=== PATIENT | male | born 1935 | race Caucasian/White ===

== ENCOUNTER 2023-10-11 20:53 | Inpatient (IN) ==
[2023-10-11 21:23] LABS: BASOPHILS % (AUTO) 0.3 % (0.0-3.0); EOSINOPHILS # (AUTO) 0.1 K/ul (0.0-0.7); EOSINOPHILS % (AUTO) 1.3 % (0.0-7.0); HEMATOCRIT 32.1 % (42.0-52.0); HEMOGLOBIN 11.2 g/dl (14.0-18.0); IMMATURE GRANULOCYTE # (AUTO) 0.1 (0.0-1.0); LYMPHOCYTES % (AUTO) 33.5 (10.0-50.0); MEAN CORPUSCULAR HEMOGLOBIN 33.4 pg (27.0-31.0); MEAN CORPUSCULAR HGB CONC 34.9 (31.8-35.4); MEAN CORPUSCULAR VOLUME 95.8 fl (80.0-94.0); MONOCYTES # (AUTO) 0.9 K/uL (0.4-2.0); MONOCYTES % (AUTO) 14.6 (0-10); NEUTROPHILS % (AUTO) 49.3 % (42.2-75.2); PLATELET COUNT 193 10^3/uL (140-440); RDW COEFFICIENT OF VARIATION 13.2 % (11.6-14.8); RED BLOOD COUNT 3.35 10^6/ul (4.70-6.10); WHITE BLOOD COUNT 6.03 K/ul (4.2-10.2)
--- NOTE | 2023-10-11 21:33 | DI ---
EXAM: SINGLE, PORTABLE AP VIEW(S) CHEST. HISTORY: Weakness. COMPARISON: 06/12/2022 TECHNIQUE: Single, portable AP view(s) of the chest. FINDINGS: Lungs: The lung voulmes are normal. The lungs are clear without consolidation or effusion. There are no suspicious nodules. There is no pneumothorax. Cardiovascular: The heart size and pulmonary vasculature is normal.. The aorta is tortuous. Jenniffer/Mediastinum: Normal. Osseous structures. Normal for age. IMPRESSION: No acute pulmonary disease.
[2023-10-11 21:47] LABS: ALANINE AMINOTRANSFERASE 21.2 U/L (0-50); ALKALINE PHOSPHATASE 67.6 U/L (56-119); ASPARTATE AMINO TRANSFERASE 36.1 U/L (17-59); BILIRUBIN,TOTAL 0.8 mg/dL (0.2-1.3); CALCIUM 8.9 mg/dL (8.4-10.2); CARBON DIOXIDE 22.4 mmol/L (22-30.0); CHLORIDE 96.6 mmol/L (98-107); CREATININE 1.11 mg/dL (0.60-1.10); GLUCOSE 94.6 mg/dL (74-106); SODIUM 125.3 mmol/L (134.5-145); TOTAL PROTEIN 7.17 g/dL (6.3-8.2)
[2023-10-11 21:56] LABS: BLOOD UREA NITROGEN 67.8 mg/dL (9-20)
[2023-10-11 22:15] LABS: BILIRUBIN,URINE Negative (NEGATIVE); CLARITY,URINE Clear (CLEAR); COLOR,URINE Yellow (YELLOW); GLUCOSE, URINE (UA) Negative (NEGATIVE); KETONES,URINE Negative (NEGATIVE); LEUKOCYTE ESTERASE ,URINE Negative (NEGATIVE); NITRITE,URINE Negative (NEGATIVE); PH,URINE 5.5 (5-9); PROTEIN,URINE Negative (NEGATIVE); URINE, BLOOD Trace-intact (NEGATIVE); UROBILINOGEN,URINE 0.2 (0.2)
[2023-10-11 22:19] LABS: POTASSIUM 3.2 mmol/L (3.5-5.1)
[2023-10-11 22:21] LABS: SQUAMOUS EPITHELIAL CELL,UR 0-2 (0-5)
[2023-10-11] MEDS: SODIUM CHLORIDE 1,000 ML IV ONE (22:42)
[2023-10-11] MEDS: POTASSIUM CHL 10% ORAL SOL PO STA (22:43)
[2023-10-11] MEDS: LASIX IVP STA (22:43)
--- NOTE | 2023-10-11 23:10 | ED.PDOC ---
General ED Provider: Dr. MAO LA DO Chief Complaint: Urinary Problem Stated Complaint: 88-year-old male presents to the ER concerned about intermittent urinary problems. He describes him as he was having to urinate every 30 minutes and then he went for a extent amount of time that he does not recall that he did not seem to urinate. But then he was able to urinate again and put on a diaper which she said he filled up but then had another episode where he felt as though he was not. Somewhat tangential, this seems to be his primary concern. He denies any fever, cough, chest pain, shortness of breath, abdominal pain, diarrhea, constipation. Denies blood thinner use. He does report that he takes blood pressure medication. He reports general compliance with it although sometimes he does miss a dose. Again he denies headache, chest pain, shortness of breath although his blood pressure is elevated upon arrival to the emergency department initially. Time Seen by Provider: 10/11/23 20:55 Information Source: Patient Primary Care Provider: YADIRA MILLIGAN MD Nursing and Triage Documentation Reviewed and Agree: Yes What is Opioid Naive?: *Opioid Naive implies the patient is not already taking opioids or not chronically receiving opioids on a daily basis. *PRN dosing is not "usually" associated with tolerance. *Patients are at higher risk of over-sedation and aspiration. What is Opioid Tolerant?: *Opioid Tolerance implies less than the expected response to an opioid. *Acquired tolerance is defined by the patient taking 60mg of oral morphine daily (or equianalgesic dose of another opioid) for 1 week or more. *Often associated with chronic pain. *May take more than usual dose to achieve desired pain control. Review of Systems Review Of Systems Constitutional: Reports No symptoms All Other Systems: Reviewed and Negative [facility] Medical History Cataracts, bilateral H26.9 - Unspecified cataract (ICD-10) History of fall Z91.81 - History of falling (ICD-10) Presence of stent in coronary artery in patient with coronary artery disease I25.10 - Atherosclerotic heart disease of [place] coronary artery without angina pectoris (ICD-10) Z95.5 - Presence of coronary angioplasty implant and graft (ICD-10) Family History Mother Dementia FATHER Acute [place] Social History Smoking and tobacco status: Former smoker Tobacco: How many years used: 40 How long ago did patient quit smoking: quit 35 years ago Alcohol intake: never Substance use type: does not use Special quan needs: No Agree to transfusion: Yes Adopted: No Caregiver/support person: No Foster care: No Household members: none Housing: house Marital status: W / Lives independently: Yes Number of children: 3 service: No [facility]: No Current occupational status: retired Pets and animals: Yes History of recent travel: No Do you think of yourself as: straight/heterosexual Current gender identity: male Seatbelt use: always Drives intoxicated or rides with intoxicated pedicab driver: No Water heater temperature set < 120 degrees: Yes Working smoke detector in home: Yes Fire extinguisher in home: Yes Carbon monoxide detector in home: No Surgical History Bilateral inguinal hernia K40.20 - Bilateral inguinal hernia, without obstruction or gangrene, not specified as recurrent (ICD-10) History of cystoscopy Z98.890 - Other specified postprocedural states (ICD-10) History of left heart catheterization Z98.890 - Other specified postprocedural states (ICD-10) S/p total knee replacement, 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 Discussed 300 340 cc. Patient able to urinate independently) Musculoskeletal: Reports Normal strength and ROM intact; Denies No edema (Bilateral lower extremity edema) Skin: Reports Warm, Dry and Normal color Neurological: Reports Sensation intact and Motor intact Psychiatric: Reports Affect appropriate and Mood appropriate Interpretation EKG Interpretation EKG Interpretation By: ED Physician Time of EKG #1: 21:21 Rate: Normal Rhythm: Other (Right bundle branch block. Appears sinus otherwise) Ectopy: None [place]: Left ST Segment: Normal Interpretation: No acute ischemia readily identified Critical Care Note Critical Care Note Total Critical Care Time (mins): 120 Comments: Critical care due to hyponatremia. Requiring cardiac monitoring and review. Cardiac output measures. Gentle fluid resuscitation. Hypokalemia, requiring repletion and observation. Renal dysfunction suspect prerenal failure. Gentle resuscitation in this elderly patient that overcorrection of any of these findings could be deadly if done incorrectly Course Course 10/11/23 21:20 10/11/23 23:45 Orders, Labs, Meds: Lab Review 10/11/23 10/11/23 10/11/23 21:20 22:00 23:45 WBC 6.03 RBC 3.35 L Hgb 11.2 L Hct 32.1 L MCV 95.8 H MCH 33.4 H MCHC 34.9 RDW Coeff of [place] 13.2 Plt Count 193 Immature Gran % (Auto) 1.0 Neut % (Auto) 49.3 Lymph % (Auto) 33.5 [place] % (Auto) 14.6 H Eos % (Auto) 1.3 Baso % (Auto) 0.3 Neut # (Auto) 3.0 Lymph # (Auto) 2.0 [place] # (Auto) 0.9 Eos # (Auto) 0.1 Baso # (Auto) 0.0 Immature Gran # (Auto) 0.1 PT 11.0 INR 1.06 Sodium 125.3 L 127.1 L Potassium 3.20 L 3.70 Chloride 96.6 L 99.6 Carbon Dioxide 22.4 21.5 L Anion Gap 9.50 9.70 BUN 67.8 H* 62.5 H* Creatinine 1.11 H 1.08 Estimated GFR (MDRD) 62.00 64.00 BUN/Creatinine Ratio 61.08 57.87 Glucose 94.6 129.4 H Calcium 8.90 8.64 Total Bilirubin 0.80 AST 36.1 ALT 21.2 Alkaline Phosphatase 67.6 NT-Pro-B Natriuret Pep 878 H Total Protein 7.17 Albumin 4.00 Globulin 3.17 Albumin/Globulin Ratio 1.26 Urine Color Yellow Urine Clarity Clear Urine pH 5.5 Ur Specific [place] 1.010 Urine Protein Negative Urine Glucose (UA) Negative Urine Ketones Negative Urine Blood Trace-intact H Urine Nitrite Negative Urine Bilirubin Negative Urine Urobilinogen 0.2 Ur Leukocyte Esterase Negative Urine Microscopic RBC 2-5 Ur Squamous Epith Cells 0-2 Orders Category Date Time Status ADMIT OBSERVATION [PLACE PATIENT OBSERVATION] .TO ADMISSION 10/12/23 00:27 Ordered MEDSURG (NON-MONITORED BED) EKG-(ED ONLY) Stat CARDIO 10/11/23 21:10 Completed BLADDER SCAN ONCE CARE 10/11/23 21:02 Active URINALYSIS COLLECTION (NURSING) ONCE CARE 10/12/23 00:29 Ordered BMP [BASIC METABOLIC PANEL] Stat LAB 10/11/23 23:45 Completed BMP [BASIC METABOLIC PANEL] Timed LAB 10/12/23 06:00 Ordered CBC W/ AUTO DIFF Stat LAB 10/11/23 21:20 Completed CBC W/ AUTO DIFF Timed LAB 10/12/23 06:00 Ordered CMP [COMPREHENSIVE METABOLIC PANEL] Stat LAB 10/11/23 21:20 Completed ED PROBNP [NT-PROBNP(ED)] Stat LAB 10/11/23 21:20 Completed NT-PROBNP(ED) DAILY LAB 10/12/23 06:00 Ordered PT WITH INR Stat LAB 10/11/23 21:20 Completed URINALYSIS C & S IF INDICATED Stat LAB 10/11/23 22:00 Completed URINALYSIS C & S IF INDICATED Timed LAB 10/12/23 06:00 Uncollected Furosemide [Lasix] Meds 10/11/23 22:31 Discontinued 40 mg IVP ONCE STA Potassium Chloride [Potassium Chl 10% Oral Peggy] Meds 10/11/23 22:31 Discontinued 40 meq PO ONCE STA Sodium Chloride 0.9% [Sodium Chloride] 1,000 ml Meds 10/11/23 22:31 Discontinued IV BOLUS CHEST, 1V AP ONLY Stat RADS 10/11/23 21:10 Completed CHEST, 1V AP ONLY Timed RADS 10/12/23 06:00 Ordered Medications Discontinued Medications Generic Name Dose Route Start Last Admin Trade Name Freq PRN Reason Stop Dose Admin Furosemide 40 mg 10/11/23 22:31 10/11/23 22:43 Furosemide Inj 40 Mg/4 Ml Vial IVP 10/11/23 22:32 40 mg ONCE STA Administration Sodium Chloride 1,000 mls @ 1,000 mls/hr 10/11/23 22:31 10/11/23 22:42 Sodium Chloride IV 10/11/23 23:30 1,000 mls/hr BOLUS ONE Administration Potassium Chloride 40 meq 10/11/23 22:31 10/11/23 22:43 Potassium Chloride 40 Meq/30 Ml Cup PO 10/11/23 22:32 40 meq ONCE STA Administration Vital Signs: Temp Pulse Resp BP Pulse Ox 10/11/23 20:58 99.1 F 76 18 188/124 H 99 Discharge Plan Discharge Patient Disposition: PLACED OBSERVATION Discharge Problem: Elevated BUN, Acute hyponatremia, Acute hypokalemia Chronic kidney disease Qualifiers: Chronic kidney disease stage: stage 3 (moderate) Chronic kidney disease stage 3 subtype: unspecified whether 3a or 3b Qualified Code(s): N18.30 - Chronic kidney disease, stage 3 unspecified Prescriptions: No Action enalapril maleate 20 mg tablet 20 mg PO QDAY Qty: 90 1RF omeprazole 20 mg capsule,delayed release(DR/EC) 20 mg PO DAILY Qty: 90 1RF atorvastatin [Lipitor] 80 mg tablet 80 mg PO QDAY Qty: 90 1RF tamsulosin 0.4 mg capsule 0.4 mg PO BID Qty: 180 1RF triamterene-hydrochlorothiazid 37.5-25 mg capsule 1 cap PO .3x week PRN (Reason: swelling) Qty: 30 2RF lidocaine HCl 10 mg/mL (1 %) solution 2.1 ml IM ONCE Qty: 2.1 0RF Did you review [place] [employer] for ALL controlled substances?: Not Applicable ED Provider: MAO LA Condition: Stable Physician Progress Note: 88-year-old male with multiple comorbidities presents with a concern about remittent difficulty urinating. He does have lower extremity edema. Concern for CHF versus renal failure. He is afebrile nontoxic doubt infectious etiology to include sepsis. He denies headache, chest pain, shortness of breath. Although he is hypertensive, this could be asymptomatic hypertension. Otherwise have low suspicion for acute cardiopulmonary processes to include not limited to ACS, [place], PE, pneumothorax, dissection or tamponade. Will evaluate BNP in addition to basic laboratory workup to assess his electrolyte status as well as renal function and BNP. Will be prepared to diurese if needed. Will exercise caution initially with IV fluids given the lower extremity edema although he does not have any crackles on physical exam of his lungs. Will continue to reassess for management disposition planning [] 0031: This patient has done overall well in the emergency department. He has handled fluids well and does not show signs of fluid overload at this time. His sodium is come up slightly and his BUN has improved slightly, his potassium has improved with oral supplementation, that said, I feel this patient requires a gentle resuscitation and electrolyte balance correction. I discussed the case with the hospitalist service who is graciously except for admission/observation.
[2023-10-12 00:12] LABS: CALCIUM 8.64 mg/dL (8.4-10.2); CARBON DIOXIDE 21.5 mmol/L (22-30.0); CHLORIDE 99.6 mmol/L (98-107); CREATININE 1.08 mg/dL (0.60-1.10); GLUCOSE 129.4 mg/dL (74-106); SODIUM 127.1 mmol/L (134.5-145)
[2023-10-12 00:20] LABS: BLOOD UREA NITROGEN 62.5 mg/dL (9-20)
[2023-10-12 00:23] LABS: POTASSIUM 3.7 mmol/L (3.5-5.1)
[2023-10-12 02:10] LABS: SARS COV-2 RNA RAPID NAAT NEGATIVE (NEGATIVE)
[2023-10-12] MEDS: SODIUM CHLORIDE 500 ML IV ONE (03:25)
[2023-10-12 03:42] VITALS: BMI 21.9
[2023-10-12 06:16] LABS: BASOPHILS % (AUTO) 0.3 % (0.0-3.0); EOSINOPHILS # (AUTO) 0.1 K/ul (0.0-0.7); EOSINOPHILS % (AUTO) 1.3 % (0.0-7.0); HEMATOCRIT 33.5 % (42.0-52.0); HEMOGLOBIN 11.7 g/dl (14.0-18.0); IMMATURE GRANULOCYTE % (AUTO) 0.7 % (0.0-5.0); LYMPHOCYTES # (AUTO) 1.6 K/uL (0.60-3.4); LYMPHOCYTES % (AUTO) 26.3 (10.0-50.0); MEAN CORPUSCULAR HEMOGLOBIN 33.2 pg (27.0-31.0); MEAN CORPUSCULAR HGB CONC 34.9 (31.8-35.4); MEAN CORPUSCULAR VOLUME 95.2 fl (80.0-94.0); MONOCYTES # (AUTO) 0.9 K/uL (0.4-2.0); MONOCYTES % (AUTO) 14.1 (0-10); NEUTROPHILS # (AUTO) 3.5 K/ul (2.0-6.9); NEUTROPHILS % (AUTO) 57.3 % (42.2-75.2); PLATELET COUNT 203 10^3/uL (140-440); RDW COEFFICIENT OF VARIATION 13.2 % (11.6-14.8); RED BLOOD COUNT 3.52 10^6/ul (4.70-6.10); WHITE BLOOD COUNT 6.09 K/ul (4.2-10.2)
[2023-10-12] MEDS ORDERED: TYLENOL PO PRN (06:17)
[2023-10-12] MEDS ORDERED: ZOFRAN 4 MG/2 ML IVP PRN (06:17)
[2023-10-12 06:30] LABS: CALCIUM 8.77 mg/dL (8.4-10.2); CARBON DIOXIDE 25.6 mmol/L (22-30.0); CREATININE 1.07 mg/dL (0.60-1.10); GLUCOSE 93.9 mg/dL (74-106); SODIUM 129.2 mmol/L (134.5-145)
[2023-10-12 06:47] LABS: POTASSIUM 3.3 mmol/L (3.5-5.1)
[2023-10-12 06:48] LABS: BLOOD UREA NITROGEN 62.6 mg/dL (9-20)
[2023-10-12 06:49] LABS: CHLORIDE 98.7 mmol/L (98-107)
[2023-10-12 07:15] LABS: BILIRUBIN,URINE Negative (NEGATIVE); CLARITY,URINE Clear (CLEAR); COLOR,URINE Yellow (YELLOW); GLUCOSE, URINE (UA) Negative (NEGATIVE); KETONES,URINE Negative (NEGATIVE); LEUKOCYTE ESTERASE ,URINE Negative (NEGATIVE); NITRITE,URINE Negative (NEGATIVE); PH,URINE 5.5 (5-9); PROTEIN,URINE Negative (NEGATIVE); URINE, BLOOD Negative (NEGATIVE); UROBILINOGEN,URINE 0.2 (0.2)
--- NOTE | 2023-10-12 09:43 | PCM ---
Date of Service Date Seen by Provider: 10/12/23 Time Seen by Provider: 08:30 Admit Day/Time Admission Date: 10/12/23 Reason for Admission Chief Complaint: HYPONITREMIA,DEHYDRATION,ELEVATED BLIN Hospital Provider Hospital Provider: SAMI WINTER, [facility] [place] Phys[place] Primary Care Physician: YADIRA COBIAN MD History of Present Illness History of Present Illness: 88 yo male presented to the ER with complaints of trouble urinating. Patient states he would feel the urge to pee but was not able to produce any. Bladder scan completed and small amount of urine was noted. Sodium was found to be 125.3. BUN 67.8. Creatinine 1.11. Normal sodium for patient appears to be around 134 and BUN typically in the 30s with creatinine in normal range. Patient states he has been experiencing significant weakness at home and difficulties with his balance. Has +3-4 pitting edema bilaterally affecting this. Denies fever, chills, urinary symptoms, chest pain, N/V/D. Case Discussed With Case Discussed With: Patient's case was discussed with the ER Physicians, Dr. Concepcion. 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 Z96.653 - Presence of artificial knee joint, bilateral (ICD-10) Bilateral inguinal hernia left caesar 2014 K40.20 - Bilateral inguinal hernia, without obstruction or gangrene, not specified as recurrent (ICD-10) History of left heart catheterization one blocked with collateral Z98.890 - Other specified postprocedural states (ICD-10) Family History Mother Dementia FATHER Acute [place] Social History Smoking and tobacco status: Former smoker Tobacco: How many years used: 40 How long ago did patient quit smoking: quit 35 years ago Alcohol intake: never Substance use type: does not use Special quan needs: No Agree to transfusion: Yes Adopted: No Caregiver/support person: No Foster care: No Household members: none Housing: house Marital status: W / Lives independently: Yes Number of children: 3 Highest education level completed: some college, no degree Financial difficulty paying for basics: not very hard service: No MCC: No Current occupational status: retired Pets and animals: Yes History of recent travel: No Do you think of yourself as: straight/heterosexual Current gender identity: male Seatbelt use: always Drives intoxicated or rides with intoxicated 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 Current diet type/program: regular Water heater temperature set < 120 degrees: Yes Working smoke detector in home: Yes Fire extinguisher in home: Yes Carbon monoxide detector in home: No Allergies Allergies Allergy/AdvReac Type Severity Reaction Status Date / Time ferrous sulfate AdvReac Unknown Verified 10/11/23 21:10 Current Medications Home Medications lidocaine HCl 10 mg/mL (1 %) injection solution 2.1 ml IM ONCE #2.1 mL 11/09/22 [Clinic Confirmed 10/11/23 Last Taken Unknown] atorvastatin 80 mg tablet (Lipitor) 80 mg PO QDAY #90 tabs 02/08/23 [Rx Confirmed 10/11/23 Last Taken Unknown] enalapril maleate 20 mg tablet 20 mg PO QDAY #90 tabs 04/13/23 [Rx Confirmed 10/11/23 Last Taken Unknown] omeprazole 20 mg capsule,delayed release 20 mg PO DAILY #90 caps 04/13/23 [Rx Confirmed 10/11/23 Last Taken Unknown] tamsulosin 0.4 mg capsule 0.4 mg PO BID #180 caps 05/12/23 [Rx Confirmed 10/11/23 Last Taken Unknown] triamterene 37.5 mg-hydrochlorothiazide 25 mg capsule 1 cap PO .3x week PRN swelling #30 caps 08/12/23 [Rx Confirmed 10/11/23 Last Taken Unknown] Home Acetaminophen (Acetaminophen 325 Mg Tablet) 650 mg PO Q4H PRN PRN Reason: Mild Pain Atorvastatin Calcium (Atorvastatin Calcium 20 Mg Tablet) 80 mg PO DAILY [facility] Enalapril Maleate (Enalapril Maleate 20 Mg Tablet) 20 mg PO DAILY [facility] Sodium Chloride (Sodium Chloride) 1,000 mls @ 75 mls/hr IV .[id number] NARENDRA Omeprazole (Omeprazole 20 Mg Capsule.Dr) 20 mg PO DAILY [facility] Ondansetron HCl (Ondansetron Hcl/Pf 4 Mg/2 Ml Sdv) 4 mg IVP Q6H PRN PRN Reason: Nausea / Vomiting Tamsulosin HCl (Tamsulosin Hcl 0.4 Mg Cap.Er.24h) 0.4 mg PO BID NARENDRA Discontinued Medications Furosemide (Furosemide Inj 40 Mg/4 Ml Vial) 40 mg IVP ONCE STA Stop: 10/11/23 22:32 Last Admin: 10/11/23 22:43 Dose: 40 mg Sodium Chloride (Sodium Chloride) 1,000 mls @ 1,000 mls/hr IV BOLUS ONE Stop: 10/11/23 23:30 Last Infusion: 10/12/23 02:32 Dose: Infused Sodium Chloride (Sodium Chloride) 500 mls @ 100 mls/hr IV .Q5H ONE Stop: 10/12/23 06:14 Last Admin: 10/12/23 03:25 Dose: 100 mls/hr Potassium Chloride (Potassium Chloride 40 Meq/30 Ml Cup) 40 meq PO ONCE STA Stop: 10/11/23 22:32 Last Admin: 10/11/23 22:43 Dose: 40 meq Potassium Chloride (Potassium Chloride 20 Meq Tab) 40 meq PO ONCE ONE Stop: 10/12/23 08:17 Opioid Naive vs. Tolerant Does Patient Take Opioids?: No Is Patient Opioid Naive?: Yes What is Opioid Naive?: *Opioid Naive implies the patient is not already taking opioids or not chronically receiving opioids on a daily basis. *PRN dosing is not "usually" associated with tolerance. *Patients are at higher risk of over-sedation and aspiration. Is Patient Opioid Tolerant?: No What is Opioid Tolerant?: *Opioid Tolerance implies less than the expected response to an opioid. *Acquired tolerance is defined by the patient taking 60mg of oral morphine daily (or equianalgesic dose of another opioid) for 1 week or more. *Often associated with chronic pain. *May take more than usual dose to achieve desired pain control. Review of Systems Constitutional: Reports Weakness Head: Reports Normocephalic Eyes: Reports No symptoms Ears: Reports No symptoms Nose: Reports No symptoms Mouth: Reports No symptoms Throat: Reports No symptoms Cardiovascular: Reports No symptoms Respiratory: Reports No symptoms Gastrointestinal: Reports No symptoms Genitourinary: Reports Other (anuria) Hematology: Reports No symptoms Immunology: Reports No symptoms Neurological: Reports No symptoms Psychiatric: Reports No symptoms Physical examination Most Recent Vital Signs: Most Recent Vital Signs Temperature 97.9 F 10/12/23 05:11 Temperature Source Temporal Artery Scan 10/12/23 05:11 Temperature Source Infrared 10/11/23 20:58 Pulse Rate 72 10/12/23 08:00 Respiratory Rate 20 10/12/23 08:00 Blood Pressure 166/80 H 10/12/23 05:11 Blood Pressure Mean 108 10/12/23 05:11 Blood Pressure Left Arm 170/83 10/12/23 03:02 Blood Pressure Location Left Arm 10/12/23 05:11 Blood Pressure Position Supine 10/12/23 03:02 O2 Sat by Pulse Oximetry 96 10/12/23 05:11 Oxygen Delivery Method Room Air 10/12/23 09:00 Height 5 ft 7 in 10/12/23 09:32 Weight 140 lb 8 oz 10/12/23 09:32 Appearance: Positive No Apparent Distress and Alert and Oriented x3 Skin: Positive [place] and Warm HEENT: Positive Normocephalic and PERRLA Neck: Positive Supple and Midline Trachea Chest/Lungs: Positive Symmetrical With Equal Breath Sounds, Clear to Auscultation Bilaterally and Good Air Movement all 4 Lung Sin Heart: Positive RRR and Pulses Normal GI/: Positive Soft, Nontender, Bowel Sounds Normal and No Distention Musculoskeletal: Positive Not Examined Extremities: Positive Edema (+3-4 pitting ble), Intact Peripheral Pulses, Stable Joints Without Laxity and Good ROM in All Joints Neurological: Positive Sensation Intact, Motor intact, Reflexes Intact, Alert, Oriented and Other (generalized weakness) Labs This Visit Labs This Visit: Labs This Visit 10/11/23 10/11/23 10/11/23 21:20 22:00 23:45 WBC 6.03 RBC 3.35 L Hgb 11.2 L Hct 32.1 L MCV 95.8 H MCH 33.4 H MCHC 34.9 RDW Coeff of [place] 13.2 Plt Count 193 Immature Gran % (Auto) 1.0 Neut % (Auto) 49.3 Lymph % (Auto) 33.5 [place] % (Auto) 14.6 H Eos % (Auto) 1.3 Baso % (Auto) 0.3 Neut # (Auto) 3.0 Lymph # (Auto) 2.0 [place] # (Auto) 0.9 Eos # (Auto) 0.1 Baso # (Auto) 0.0 Immature Gran # (Auto) 0.1 PT 11.0 INR 1.06 Sodium 125.3 L 127.1 L Potassium 3.20 L 3.70 Chloride 96.6 L 99.6 Carbon Dioxide 22.4 21.5 L Anion Gap 9.50 9.70 BUN 67.8 H* 62.5 H* Creatinine 1.11 H 1.08 Estimated GFR (MDRD) 62.00 64.00 BUN/Creatinine Ratio 61.08 57.87 Glucose 94.6 129.4 H Calcium 8.90 8.64 Total Bilirubin 0.80 AST 36.1 ALT 21.2 Alkaline Phosphatase 67.6 NT-Pro-B Natriuret Pep 878 H Total Protein 7.17 Albumin 4.00 Globulin 3.17 Albumin/Globulin Ratio 1.26 Urine Color Yellow Urine Clarity Clear Urine pH 5.5 Ur Specific [place] 1.010 Urine Protein Negative Urine Glucose (UA) Negative Urine Ketones Negative Urine Blood Trace-intact H Urine Nitrite Negative Urine Bilirubin Negative Urine Urobilinogen 0.2 Ur Leukocyte Esterase Negative Urine Microscopic RBC 2-5 Ur Squamous Epith Cells 0-2 SARS CoV-2 RNA Rapid IVANNA 10/12/23 10/12/23 10/12/23 01:29 06:12 07:05 WBC 6.09 RBC 3.52 L Hgb 11.7 L Hct 33.5 L MCV 95.2 H MCH 33.2 H MCHC 34.9 RDW Coeff of [place] 13.2 Plt Count 203 Immature Gran % (Auto) 0.7 Neut % (Auto) 57.3 Lymph % (Auto) 26.3 [place] % (Auto) 14.1 H Eos % (Auto) 1.3 Baso % (Auto) 0.3 Neut # (Auto) 3.5 Lymph # (Auto) 1.6 [place] # (Auto) 0.9 Eos # (Auto) 0.1 Baso # (Auto) 0.0 Immature Gran # (Auto) 0.0 PT INR Sodium 129.2 L Potassium 3.30 L Chloride 98.7 Carbon Dioxide 25.6 Anion Gap 8.20 BUN 62.6 H* Creatinine 1.07 Estimated GFR (MDRD) 65.00 BUN/Creatinine Ratio 58.50 Glucose 93.9 Calcium 8.77 Total Bilirubin AST ALT Alkaline Phosphatase NT-Pro-B Natriuret Pep 2190 H Total Protein Albumin Globulin Albumin/Globulin Ratio Urine Color Yellow Urine Clarity Clear Urine pH 5.5 Ur Specific [place] 1.010 Urine Protein Negative Urine Glucose (UA) Negative Urine Ketones Negative Urine Blood Negative Urine Nitrite Negative Urine Bilirubin Negative Urine Urobilinogen 0.2 Ur Leukocyte Esterase Negative Urine Microscopic RBC Ur Squamous Epith Cells SARS CoV-2 RNA Rapid IVANNA Negative Imaging Imaging: EXAM: SINGLE, PORTABLE AP VIEW(S) CHEST. HISTORY: Weakness. COMPARISON: 06/12/2022 TECHNIQUE: Single, portable AP view(s) of the chest. FINDINGS: Lungs: The lung voulmes are normal. The lungs are clear without consolidation or effusion. There are no suspicious nodules. There is no pneumothorax. Cardiovascular: The heart size and pulmonary vasculature is normal.. The aorta is tortuous. Jenniffer/Mediastinum: Normal. Osseous structures. Normal for age. IMPRESSION: No acute pulmonary disease. Review Statement Review Statement: I have independently reviewed and interpreted the labs/EKGs/imaging that were ordered by the ER provider. I have reviewed all outside records that are available currently in our EMR including imaging/notes/labs from previous visits. Plan Plan: 1. Severe Hyponatremia - Na 125, baseline 134, NS@75mL/hr - gentle due to CHF history and significant edema, unable to complete osmolalities due to treatment with IV fluids in ER, telemetry 2. Dehydration - BUN in 60s, baseline 30s, gentle hydration - NS@75mL/hr, avoid nephrotoxins/hypotension 3. Hypokalemia - replace and monitor 4. Hypertension - chronic, continue home medications 5. Weakness - PT/OT eval and treat DVT Prophylaxis: ambulation Time Spent: Greater than 80 minutes spent with patient, 50% of the time spent with this patient was devoted to counseling and coordination of care. [facility] minutes spent discussing advance care planning. Disposition: Admit to: Med/Surg Inpatient DNR Discussed Plan of Care with Dr. Michael Cobian. Medications Medication Orders: Medications Ordered Category Date Time Status Acetaminophen [Tylenol] Meds 10/12/23 06:17 Active 650 mg PO Q4H PRN Atorvastatin Calcium [Lipitor] Meds 10/12/23 06:30 Active 80 mg PO DAILY Enalapril Maleate [Vasotec] Meds 10/12/23 06:30 Active 20 mg PO DAILY Omeprazole [Prilosec] Meds 10/12/23 09:00 Active 20 mg PO DAILY Ondansetron HCl/Pf [Zofran 4 mg/2 ml] Meds 10/12/23 06:17 Active 4 mg IVP Q6H PRN Tamsulosin HCl [Flomax] Meds 10/12/23 09:00 Active 0.4 mg PO BID
[2023-10-12] MEDS: LIPITOR PO SCH (10:01)
[2023-10-12] MEDS: PRILOSEC PO SCH (10:01)
[2023-10-12] MEDS: FLOMAX PO SCH (10:01)
[2023-10-12] MEDS: VASOTEC PO SCH (10:01)
[2023-10-12] MEDS: MIRALAX PO PRN (10:23)
[2023-10-12] MEDS: MIRALAX ONE (10:24)
[2023-10-12] MEDS: K-DUR PO ONE (10:24)
[2023-10-12] MEDS: SODIUM CHLORIDE 1,000 ML IV SCH (11:27)
--- NOTE | 2023-10-12 12:04 | RS.PTINEVL ---
Subjective Patient information Date of Evaluation: 10/12/23 Date of Arrival on Unit: 10/12/23 Admitted From:: Home Diagnosis: hyponatremia, dehydration Usual Living Arrangement: With Others Living Arrangement Comments: Son lives with patient, daughter lives next door Home Environment: House, Stairs (few) and Rail Medical History: Hypertension and Arthritis Medical History Comments:: CAD, h/o falls LATEX ALLERGY?: No Surgical History: Knee Replacement (bilateral) Surgical History Comments:: B inguinal hernia repair, Coronary stent Medications: see chart Subjective Information/ Patient Comments:: pt states that he would like to try to walk. pt states "I am wet." Assisted pt with hygeine. Level of function Prior to this admission, the patient could do the following:: Independent Selfcare, Independent ADL's, Independent Ambulation, Perform Hook Tender/Cooking and Participated in Social Activities Outside home Current Level of Function: Partially Dependent Current Equipment Used at Home: rolling walker Interventions Objective Patient Orientation: Person, Place and Situation Current Interventions: IV's and Telemetry Observation: pt with significant thoracic kyphosis, rounded shoulders, forward head. Range of Motion ROM Right Upper Extremity AROM: WFL's Left Upper Extremity AROM: WFL's Right Lower Extremity AROM: WFL's Left Lower Extremity AROM: WFL's Muscle Strength Muscle Strength Right Upper Extremity: Mild Weakness (grossly 4-/5) Left Upper Extremity: Mild Weakness (grossly 4-/5) Right Lower Extremity: Mild Weakness (hip flex 4-/5, knee flex/ext 4/5, ankle DF/PF 4/5) Left Lower Extremity: Mild Weakness (hip flex 4-/5, knee flex/ext 4/5, ankle DF/PF 4/5) Sensation Sensation Right Upper Extremity: Intact/Normal Left Upper Extremity: Intact/Normal Right Lower Extremity: Intact/Normal Left Lower Extremity: Intact/Normal Palpation Palpation Findings: None/Normal Balance Sitting Balance and Reactions Static Sitting Balance: Fair Dynamic Sitting Balance: Fair (fair-) Standing Balance and Reactions Static Standing Balance: Poor Dynamic Standing Balance: Poor Standing Equilibrium Reactions: Delayed Left and Delayed Right Standing Protective Reactions: Delayed Left and Delayed Right Functional Mobility Bed Mobility Comments:: pt seen sitting up in bedside chair. Transfers Sit to Stand: Min Assist Stand to Sit: Min Assist Safety Awareness Safety Awareness: Poor MIRNA INDEX SCORE: n/a Ambulation Ambulation Assistive Device Used: Rolling Walker Orthotic/Prosthetic Device: No Distance: 110ft Assistance needed with Ambulation: Min Assist and 1 person assist Gait Deviations: Forward posture, Short stride and Deviates from path Factors Affecting Ambulation: Decreased Balance, Weakness, Decreased Coordination, Decreased Safety and Limited Endurance Treatment time Units charged Gait trainin Time with patient Length of Evaluation: 19 Total treatment time: 32 Patient Education Education Patient Education: Activity Modification and Education of Plan of Care Teaching Recipient: Patient Teaching Methods: Discussion Comments: discussion regarding POC Assessment Assessment Problem List:: Decreased level of function, Requires training/education, Decreased safety/Risk of falls and Weakness Rehab Potential: Good Further Therapy Indicated?: Yes Candidate for Swing Bed for Therapy Services?: pt may be a candidate for swing bed for therapy, will reassess closer to ca from acute care. Evaluation Complexity: HISTORY: Medium, EXAM OF BODY SYSTEMS: Medium, CLINICAL PRESENTATION: Medium and CLINICAL DECISION MAKING: Medium Patient's Goal(s): Get stronger and go back home. Short Term Goals GOAL #1: pt demonstrate rolling and scooting in bed independently. Goal to be met by: 10/15/23 GOAL #2: Transfer sup to/from sit min x 1 Goal to be met by: 10/15/23 GOAL #3: Transfer sit to/from stand CGA Goal to be met by: 10/15/23 GOAL #4: pt amb with rwx 140ft with CGA x 1 no LOB Goal to be met by: 10/15/23 GOAL #5: Improve BLE strength 4 to 4+/5 Goal to be met by: 10/15/23 Turf Farm Worker Goals GOAL #1: pt transfer sup to/from sit to/from stand SBA to indepednent. Goal to be met by: 10/18/23 GOAL #2: pt amb functional household distances with rwx SBA. Goal to be met by: 10/18/23 GOAL #3: pt ascend/descend 3 steps w handrail CGA x 1 Goal to be met by: 10/18/23 Plan Plan of Care: Therapeutic EX and Therapeutic Activity Other:: gait training Frequency of Treatment: 1-2 X day, as tolerated Duration of Treatment: 5-7 days Anticipated Discharge Destination: home vs swing bed Treatment Diagnosis (ICD 10 Codes): impaired balance R 26.81 difficulty walking R26.2 weakness M62.81 h/o falls R 29.6 Has the Physician been added for Co-signature?: Yes
--- NOTE | 2023-10-12 12:05 | RS.OTINEVL ---
Subjective Patient information Date of Evaluation: 10/12/23 Date of Arrival on Unit: 10/12/23 Admitted From:: Home Diagnosis: dehydrated, hyponitremia, weakness PRECAUTIONS: Fall risk Usual Living Arrangement: With Others Living Arrangement Comments: Son lives with patient in the patient's house. Home Environment: House and Stairs (many) (to get into home, one step down into living room.) Medical History: Hypertension and CHF Medical History Comments:: RI 2007, DDD LATEX ALLERGY?: No Surgical History: Knee Replacement (Left 2005, Right 04/26/14) Surgical History Comments:: hernia repair 2013, Right TKA 04/26/14 Medications: Refer to chart Subjective Information/ Patient Comments:: Pt reports he uses a RW at home. Level of function Prior to this admission, the patient could do the following:: Independent Selfcare, Independent ADL's, Independent Ambulation, Perform Geodetic Surveyor/Cooking, Drive and Participated in Social Activities Outside home Abilities prior to this admission: Pt is able to dress himself. Pt is able to pull briefs up. Pt wears brief. Pt does shop sometimes at the [employer] store. Current Level of Function: Partially Dependent Current Equipment Used at Home: Rolling Walker Pain Assessment Pain Pain Score: 0 Interventions Objective Patient Orientation: Person, Place and Situation Current Interventions: IV's Observation: Pt is thin and walks bent over. Pt is able to complete using a urinal. Pt was educated about calling for help to use the urinal in standing. Pt has 4-/5 MMT of BUE. Interventions ROM Right Upper Extremity AROM: WFL's Left Upper Extremity AROM: WFL's Strength Right Upper Extremity: Mild Weakness Left Upper Extremity: Mild Weakness Sensation Right Upper Extremity: Intact/Normal Left Upper Extremity: Intact/Normal Balance Sitting Balance Static Sitting Balance: Good Dynamic Sitting Balance: Good Standing Balance Static Standing Balance: Poor Dynamic Standing Balance: Poor ADL Skills Self Feeding Self Feeding: Independent Grooming Grooming: Min Assist Grooming Set-up: Sitting Bathing Bathing UE: CGA, Min Assist, 1 person assist and Verbal Cues Bathing LE: Min Assist, 1 person assist and Verbal Cues Bathing Set-up: Shower Dressing Dressing UE: Independent Dressing LE: Min Assist Toilet Management Toilet Hygiene: Set Up Only Toilet Clothing Management: Independent Functional Mobility Transfers Sit to Stand: Min Assist Stand to Sit: Min Assist Stand Pivot Transfers: Min Assist Ambulation Weight Bearing Status: WBAT Assistive Device Used: Rolling Walker Assistance needed with Ambulation: CGA Safety Awareness Safety Awareness: Good MIRNA INDEX SCORE: . Additional Treatment Performed Additional units charged ADL: 15 Time with patient Length of Evaluation: 17 Total treatment time: 32 Activities Do you enjoy playing games?: Yes Would you be interested in leaving your room for activities?: Yes Would you enjoy group activities?: Yes Do you have difficulty with your vision?: No Patient Interests:: Watching Television and Visiting/Socializing Patient Education Patient Education: Education of diagnosis, Home Safety and Education of Plan of Care Teaching Recipient: Patient Teaching Methods: Discussion and Demonstration Assessment Problem List:: Decreased level of function, Requires training/education, Decreased safety/Risk of falls and Weakness Rehab Potential: Good Further Therapy Indicated?: Yes Evaluation Complexity: HISTORY: Medium, EXAM OF BODY SYSTEMS: Medium and CLINICAL DECISION MAKING: Medium Patient's Goal(s): To get stronger and be able to take care of himself. Short Term Goals Goals GOAL 1: Pt will be (S) with dressing. Goal to be met by: 10/15/23 GOAL 2: Pt will be (S) with functional mobility. Goal to be met by: 10/15/23 GOAL 3: Pt will have good- ADL balance and strength. Goal to be met by: 10/15/23 GOAL 4: Pt to increase BUE strength to 4/5. Goal to be met by: 10/15/23 GOAL 5: Pt to be SUP with toilet transfer. Goal to be met by: 10/15/23 Fpc Goals GOAL 1: Pt will be (I) with dressing. Goal to be met by: 10/19/23 GOAL 2: Pt will be (I) with functional mobility. Goal to be met by: 10/19/23 GOAL 3: Pt will have good ADL balance and strength. Goal to be met by: 10/19/23 Plan Plan of Care: Therapeutic EX, Neuromuscular Re-Educ, Therapeutic Activity and Self-Care/Home Management Frequency of Treatment: 1-2 X day, as tolerated Duration of Treatment: 1 Week Anticipated Discharge Destination: Home Treatment Diagnosis (ICD 10 Codes): Weakness R53.1, Z74.1 Need for assistance with personal care. Has the Physician been added for Co-signature?: Yes
[2023-10-12] MEDS: MIRALAX PO ONE (21:38)
[2023-10-13] MEDS: ZYPREXA IM ONE (00:01)
[2023-10-13 05:39] LABS: BASOPHILS % (AUTO) 0.1 % (0.0-3.0); EOSINOPHILS # (AUTO) 0.1 K/ul (0.0-0.7); EOSINOPHILS % (AUTO) 1.1 % (0.0-7.0); HEMATOCRIT 35.3 % (42.0-52.0); HEMOGLOBIN 12.1 g/dl (14.0-18.0); IMMATURE GRANULOCYTE # (AUTO) 0.1 (0.0-1.0); IMMATURE GRANULOCYTE % (AUTO) 0.8 % (0.0-5.0); LYMPHOCYTES # (AUTO) 1.8 K/uL (0.60-3.4); MEAN CORPUSCULAR HEMOGLOBIN 32.8 pg (27.0-31.0); MEAN CORPUSCULAR HGB CONC 34.3 (31.8-35.4); MEAN CORPUSCULAR VOLUME 95.7 fl (80.0-94.0); MONOCYTES # (AUTO) 0.9 K/uL (0.4-2.0); MONOCYTES % (AUTO) 11.6 (0-10); NEUTROPHILS # (AUTO) 5.1 K/ul (2.0-6.9); NEUTROPHILS % (AUTO) 63.4 % (42.2-75.2); PLATELET COUNT 209 10^3/uL (140-440); RDW COEFFICIENT OF VARIATION 13.3 % (11.6-14.8); RED BLOOD COUNT 3.69 10^6/ul (4.70-6.10); WHITE BLOOD COUNT 7.96 K/ul (4.2-10.2)
[2023-10-13 05:55] LABS: ALANINE AMINOTRANSFERASE 21.6 U/L (0-50); ALBUMIN 3.82 g/dL (3.5-5.0); ALKALINE PHOSPHATASE 74.1 U/L (56-119); ASPARTATE AMINO TRANSFERASE 30.8 U/L (17-59); BILIRUBIN,TOTAL 1.04 mg/dL (0.2-1.3); BLOOD UREA NITROGEN 38.1 mg/dL (9-20); CALCIUM 8.87 mg/dL (8.4-10.2); CHLORIDE 102.8 mmol/L (98-107); CREATININE 1.04 mg/dL (0.60-1.10); GLUCOSE 99.5 mg/dL (74-106); POTASSIUM 3.92 mmol/L (3.5-5.1); SODIUM 130.6 mmol/L (134.5-145); TOTAL PROTEIN 7.19 g/dL (6.3-8.2)
--- NOTE | 2023-10-13 09:36 | PCM.PROG ---
Date/Time Seen Date Seen by Provider: 10/13/23 Time Seen by Provider: 08:30 Provider Provider: SAMI WINTER, [facility] Chief Complaint Chief Complaint: HYPONITREMIA,DEHYDRATION,ELEVATED BLIN Subjective Subjective: Had episode of confusion last night. Broke IV tubing. Trying to climb out of bed. Required 1 dose of zyprexa IM. Oriented to person and time. Disoriented to place and situation. States he is in [facility] at a tutoring facility. Objective Appearance: Positive No Apparent Distress and Thin Chest/Lungs: Positive Symmetrical With Equal Breath Sounds, Clear to Auscultation Bilaterally and Good Air Movement all 4 Lung Sin Heart: Positive RRR and Pulses Normal GI/: Positive Soft, Nontender, Bowel Sounds Normal and No Distention Musculoskeletal: Positive Other (+2-3 pitting edema bilaterally) and Not Examined Neurological: Positive Sensation Intact, Motor intact, Reflexes Intact, Alert, Oriented (x2), Disorinted and Other (generalized weakness) Vital Signs Vital Signs: Vital Signs: Last 24 Hours 10/12/23 09:32 10/12/23 10:49 10/12/23 13:00 Temperature 98.2 F Temperature Source Oral Pulse Rate 57 L Respiratory Rate 16 Blood Pressure 180/82 H Blood Pressure Mean 114 Blood Pressure Location Left Arm Blood Pressure Position Sitting O2 Sat by Pulse Oximetry 100 Oxygen Delivery Method Room Air Height 5 ft 7 in Weight 140 lb 8 oz Telemetry Type Remote Telemetry Telemetry Monitoring Started Telemetry Heart Rate 77 EKG VA Interval 0.20 EKG QRS Interval 0.09 Telemetry Strip Reading SR with PVC's and artifact 10/12/23 14:00 10/12/23 18:00 10/12/23 19:00 Temperature 97.8 F 98.1 F Temperature Source Temporal Artery Scan Pulse Rate 67 83 Respiratory Rate 16 16 Blood Pressure 127/59 L 174/75 H Blood Pressure Mean 81 108 Blood Pressure Location Left Arm Left Arm Blood Pressure Position Supine O2 Sat by Pulse Oximetry 99 99 Oxygen Delivery Method Room Air Room Air Height Weight Telemetry Type Remote Telemetry Telemetry Monitoring Continues Telemetry Heart Rate 76 EKG VA Interval 0.20 EKG QRS Interval 0.12 H Telemetry Strip Reading SA 10/12/23 20:00 10/12/23 21:34 10/13/23 01:00 Temperature 98.6 F Temperature Source Temporal Artery Scan Pulse Rate 77 Respiratory Rate 18 17 Blood Pressure 175/76 H Blood Pressure Mean 109 Blood Pressure Location Left Arm Blood Pressure Position Supine O2 Sat by Pulse Oximetry 98 Oxygen Delivery Method Room Air Height Weight Telemetry Type Remote Telemetry Telemetry Monitoring Continues Telemetry Heart Rate 75 EKG VA Interval 0.12 EKG QRS Interval 0.10 Telemetry Strip Reading SR with PVC's 10/13/23 05:17 Temperature 97.7 F Temperature Source Temporal Artery Scan Pulse Rate 92 Respiratory Rate 16 Blood Pressure 167/81 H Blood Pressure Mean 109 Blood Pressure Location Right Arm Blood Pressure Position Supine O2 Sat by Pulse Oximetry 98 Oxygen Delivery Method Room Air Height Weight Telemetry Type Telemetry Monitoring Telemetry Heart Rate EKG VA Interval EKG QRS Interval Telemetry Strip Reading Lab Results Lab Results: Lab Results: Last 24 Hours 10/13/23 05:20 WBC 7.96 RBC 3.69 L Hgb 12.1 L Hct 35.3 L MCV 95.7 H MCH 32.8 H MCHC 34.3 RDW Coeff of Freedom 13.3 Plt Count 209 Immature Gran % (Auto) 0.8 Neut % (Auto) 63.4 Lymph % (Auto) 23.0 [place] % (Auto) 11.6 H Eos % (Auto) 1.1 Baso % (Auto) 0.1 Neut # (Auto) 5.1 Lymph # (Auto) 1.8 [place] # (Auto) 0.9 Eos # (Auto) 0.1 Baso # (Auto) 0.0 Immature Gran # (Auto) 0.1 Sodium 130.6 L Potassium 3.92 Chloride 102.8 Carbon Dioxide 23.0 Anion Gap 8.72 BUN 38.1 H D Creatinine 1.04 Estimated GFR (MDRD) 67.00 BUN/Creatinine Ratio 36.63 Glucose 99.5 Calcium 8.87 Total Bilirubin 1.04 AST 30.8 ALT 21.6 Alkaline Phosphatase 74.1 Total Protein 7.19 Albumin 3.82 Globulin 3.37 Albumin/Globulin Ratio 1.13 Additional Comments Additional Comments: I have independently reviewed and interpreted the labs/EKGs/imaging ordered during this hospital stay. I have reviewed outside records that are available in our EMR that pertain to medical stay including imaging/notes/labs from previous visits. Active Medications Active Medications: Medications Generic Name Dose Route Start Last Admin Trade Name Freq PRN Reason Stop Dose Admin Acetaminophen 650 mg 10/12/23 06:17 Acetaminophen 325 Mg Tablet PO Q4H PRN Mild Pain Atorvastatin Calcium 80 mg 10/12/23 06:30 10/13/23 08:47 Atorvastatin Calcium 20 Mg Tablet PO 80 mg DAILY NARENDRA Administration Enalapril Maleate 20 mg 10/12/23 06:30 10/13/23 08:47 Enalapril Maleate 20 Mg Tablet PO 20 mg DAILY NARENDRA Administration Sodium Chloride 1,000 mls @ 75 mls/hr 10/12/23 10:00 10/13/23 00:02 Sodium Chloride IV 75 mls/hr .[id number] NARENDRA Administration Omeprazole 20 mg 10/12/23 09:00 10/13/23 08:47 Omeprazole 20 Mg Capsule. PO 20 mg DAILY NARENDRA Administration Ondansetron HCl 4 mg 10/12/23 06:17 Ondansetron Hcl/Pf 4 Mg/2 Ml Sdv IVP Q6H PRN Nausea / Vomiting Polyethylene Glycol 17 gm 10/12/23 10:03 10/12/23 10:23 Polyethylene Glycol 17 Gm Powd.Pack PO 17 gm DAILY PRN Administration Constipation Tamsulosin HCl 0.4 mg 10/12/23 09:00 10/13/23 08:47 Tamsulosin Hcl 0.4 Mg Cap.Er.24h PO 0.4 mg BID NARENDRA Administration Plan Plan: 1. Severe Hyponatremia - Improving, Na 130.6 today, baseline 134, NS@75mL/hr - gentle due to CHF history and significant edema, unable to complete osmolalities due to treatment with IV fluids in ER, telemetry 2. Dehydration - Improving, BUN in 35 today, baseline 30s, continue gentle hydration - NS@75mL/hr, avoid nephrotoxins/hypotension 3. Acute Metabolic Encephalopathy - likely due to #1, mildly disoriented this am, will monitor 4. Hypokalemia - Resolved, replaced and monitor 5. Hypertension - chronic, continue home medications 6. Weakness - PT/OT eval and treat DVT Prophylaxis: ambulation Review Statement Review Statement: I have personally discussed and reviewed the patient's visit/currently labs/imaging/decision making with Dr. Cobian, my supervising attending. Greater that 50 minutes spent with patient, 50% of the time spent with this patient was devoted to counseling and coordination of care.
[2023-10-14 05:11] LABS: BASOPHILS % (AUTO) 0.3 % (0.0-3.0); EOSINOPHILS # (AUTO) 0.3 K/ul (0.0-0.7); EOSINOPHILS % (AUTO) 4.3 % (0.0-7.0); HEMATOCRIT 30.6 % (42.0-52.0); HEMOGLOBIN 10.5 g/dl (14.0-18.0); IMMATURE GRANULOCYTE % (AUTO) 0.7 % (0.0-5.0); LYMPHOCYTES # (AUTO) 1.6 K/uL (0.60-3.4); LYMPHOCYTES % (AUTO) 27.1 (10.0-50.0); MEAN CORPUSCULAR HEMOGLOBIN 33.4 pg (27.0-31.0); MEAN CORPUSCULAR HGB CONC 34.3 (31.8-35.4); MEAN CORPUSCULAR VOLUME 97.5 fl (80.0-94.0); MONOCYTES # (AUTO) 0.9 K/uL (0.4-2.0); MONOCYTES % (AUTO) 14.6 (0-10); NEUTROPHILS # (AUTO) 3.1 K/ul (2.0-6.9); PLATELET COUNT 170 10^3/uL (140-440); RDW COEFFICIENT OF VARIATION 13.7 % (11.6-14.8); RED BLOOD COUNT 3.14 10^6/ul (4.70-6.10); WHITE BLOOD COUNT 5.84 K/ul (4.2-10.2)
[2023-10-14 05:22] LABS: ALANINE AMINOTRANSFERASE 18.1 U/L (0-50); ALBUMIN 2.89 g/dL (3.5-5.0); ALKALINE PHOSPHATASE 59.8 U/L (56-119); ASPARTATE AMINO TRANSFERASE 29.5 U/L (17-59); BILIRUBIN,TOTAL 1.08 mg/dL (0.2-1.3); BLOOD UREA NITROGEN 25.9 mg/dL (9-20); CALCIUM 8.32 mg/dL (8.4-10.2); CARBON DIOXIDE 21.9 mmol/L (22-30.0); CREATININE 1.07 mg/dL (0.60-1.10); GLUCOSE 90.8 mg/dL (74-106); TOTAL PROTEIN 5.81 g/dL (6.3-8.2)
[2023-10-14 05:24] LABS: CHLORIDE 105.6 mmol/L (98-107)
[2023-10-14 05:25] LABS: POTASSIUM 4.22 mmol/L (3.5-5.1)
[2023-10-14] MEDS: SODIUM CHLORIDE PO SCH (08:37)
[2023-10-14] MEDS: PRILOSEC PO SCH (08:37)
--- NOTE | 2023-10-14 09:17 | PCM.PROG ---
Date/Time Seen Date Seen by Provider: 10/14/23 Time Seen by Provider: 08:05 Provider [facility] Chief Complaint Chief Complaint: HYPONITREMIA,DEHYDRATION,ELEVATED BLIN Subjective Subjective: States he feels even better today. No events overnight. Objective Appearance: Positive No Apparent Distress and Alert and Oriented x3 Chest/Lungs: Positive Symmetrical With Equal Breath Sounds, Clear to Auscultation Bilaterally and Good Air Movement all 4 Lung Sin Heart: Positive RRR and Pulses Normal GI/: Positive Soft, Nontender, Bowel Sounds Normal and No Distention Musculoskeletal: Positive Not Examined Neurological: Positive Sensation Intact, Motor intact, Reflexes Intact, Alert and Oriented Additional Findings: +1-2 pitting edema BLE Vital Signs Vital Signs: Vital Signs: Last 24 Hours 10/13/23 09:45 10/13/23 10:34 10/13/23 14:00 Temperature 98.6 F 97.5 F L Temperature Source Temporal Artery Scan Temporal Artery Scan Pulse Rate 84 87 Respiratory Rate 16 18 Blood Pressure 171/109 H 168/88 H 161/90 H Blood Pressure Mean 129 114 113 Blood Pressure Location Left Arm Left Arm Left Arm Blood Pressure Position Supine Sitting Supine O2 Sat by Pulse Oximetry 99 99 Oxygen Delivery Method Room Air Room Air Room Air 10/13/23 18:00 10/13/23 21:42 10/14/23 05:03 Temperature 97.6 F 98.5 F 97.5 F L Temperature Source Oral Temporal Artery Scan Temporal Artery Scan Pulse Rate 89 83 88 Respiratory Rate 16 16 16 Blood Pressure 151/85 H 167/96 H 138/82 Blood Pressure Mean 107 119 100 Blood Pressure Location Left Arm Left Arm Left Arm Blood Pressure Position Sitting Supine Sitting O2 Sat by Pulse Oximetry 98 98 96 Oxygen Delivery Method Room Air Room Air Room Air Lab Results Lab Results: Lab Results: Last 24 Hours 10/14/23 05:00 WBC 5.84 RBC 3.14 L Hgb 10.5 L Hct 30.6 L MCV 97.5 H MCH 33.4 H MCHC 34.3 RDW Coeff of Freedom 13.7 Plt Count 170 Immature Gran % (Auto) 0.7 Neut % (Auto) 53.0 Lymph % (Auto) 27.1 [place] % (Auto) 14.6 H Eos % (Auto) 4.3 Baso % (Auto) 0.3 Neut # (Auto) 3.1 Lymph # (Auto) 1.6 [place] # (Auto) 0.9 Eos # (Auto) 0.3 Baso # (Auto) 0.0 Immature Gran # (Auto) 0.0 Sodium 129.0 L Potassium 4.22 Chloride 105.6 Carbon Dioxide 21.9 L Anion Gap 5.72 BUN 25.9 H Creatinine 1.07 Estimated GFR (MDRD) 65.00 BUN/Creatinine Ratio 24.20 Glucose 90.8 Calcium 8.32 L Total Bilirubin 1.08 AST 29.5 ALT 18.1 Alkaline Phosphatase 59.8 Total Protein 5.81 L Albumin 2.89 L Globulin 2.92 Albumin/Globulin Ratio 0.98 Additional Comments Additional Comments: I have independently reviewed and interpreted the labs/EKGs/imaging ordered during this hospital stay. I have reviewed outside records that are available in our EMR that pertain to medical stay including imaging/notes/labs from previous visits. Active Medications Active Medications: Medications Generic Name Dose Route Start Last Admin Trade Name Freq PRN Reason Stop Dose Admin Acetaminophen 650 mg 10/12/23 06:17 Acetaminophen 325 Mg Tablet PO Q4H PRN Mild Pain Atorvastatin Calcium 80 mg 10/12/23 06:30 10/14/23 08:37 Atorvastatin Calcium 20 Mg Tablet PO 80 mg DAILY NARENDRA Administration Enalapril Maleate 20 mg 10/12/23 06:30 10/14/23 08:37 Enalapril Maleate 20 Mg Tablet PO 20 mg DAILY NARENDRA Administration Omeprazole 20 mg 10/14/23 08:00 10/14/23 08:37 Omeprazole 20 Mg Capsule.Dr PO 20 mg QDAC2 NARENDRA Administration Ondansetron HCl 4 mg 10/12/23 06:17 Ondansetron Hcl/Pf 4 Mg/2 Ml Sdv IVP Q6H PRN Nausea / Vomiting Polyethylene Glycol 17 gm 10/12/23 10:03 10/14/23 08:40 Polyethylene Glycol 17 Gm Powd.Pack PO 17 gm DAILY PRN Administration Constipation Sodium Chloride 1 gm 10/14/23 09:00 10/14/23 08:37 Sodium Chloride 1 Gm Tablet PO 1 gm TID NARENDRA Administration Tamsulosin HCl 0.4 mg 10/12/23 09:00 10/14/23 08:37 Tamsulosin Hcl 0.4 Mg Cap.Er.24h PO 0.4 mg BID NARENDRA Administration Plan Plan: 1. Severe Hyponatremia - Stable, sodium 129, started on salt tabs and stopped fluids today due to chf hx, baseline 134, unable to complete osmolalities due to treatment with IV fluids in ER, telemetry 2. Dehydration - Resolved, stopped fluids today avoid nephrotoxins/hypotension 3. Acute Metabolic Encephalopathy - Improved, likely due to #1, mildly disoriented this am, will monitor 4. Hypokalemia - Resolved, replaced and monitor 5. Hypertension - chronic, continue home medications 6. Weakness - PT/OT eval and treat DVT Prophylaxis: ambulation Dispo: family concerned with safe discharge due to weakness/balance issues. Plan to admit to swingbed tomorrow if patient remains medically stable. Review Statement Review Statement: I have personally discussed and reviewed the patient's visit/currently labs/imaging/decision making with Dr. Cobian, my supervising attending. Greater that 50 minutes spent with patient, 50% of the time spent with this patient was devoted to counseling and coordination of care.
[2023-10-15 06:26] LABS: BASOPHILS % (AUTO) 0.2 % (0.0-3.0); EOSINOPHILS # (AUTO) 0.2 K/ul (0.0-0.7); EOSINOPHILS % (AUTO) 3.5 % (0.0-7.0); HEMATOCRIT 29.8 % (42.0-52.0); HEMOGLOBIN 10.3 g/dl (14.0-18.0); IMMATURE GRANULOCYTE % (AUTO) 0.6 % (0.0-5.0); LYMPHOCYTES # (AUTO) 1.7 K/uL (0.60-3.4); LYMPHOCYTES % (AUTO) 27.6 (10.0-50.0); MEAN CORPUSCULAR HEMOGLOBIN 34.1 pg (27.0-31.0); MEAN CORPUSCULAR HGB CONC 34.6 (31.8-35.4); MEAN CORPUSCULAR VOLUME 98.7 fl (80.0-94.0); MONOCYTES # (AUTO) 0.7 K/uL (0.4-2.0); MONOCYTES % (AUTO) 10.5 (0-10); NEUTROPHILS # (AUTO) 3.6 K/ul (2.0-6.9); NEUTROPHILS % (AUTO) 57.6 % (42.2-75.2); PLATELET COUNT 167 10^3/uL (140-440); RDW COEFFICIENT OF VARIATION 14.2 % (11.6-14.8); RED BLOOD COUNT 3.02 10^6/ul (4.70-6.10); WHITE BLOOD COUNT 6.27 K/ul (4.2-10.2)
[2023-10-15 06:38] LABS: ALANINE AMINOTRANSFERASE 18.2 U/L (0-50); ALBUMIN 2.92 g/dL (3.5-5.0); ALKALINE PHOSPHATASE 60.5 U/L (56-119); ASPARTATE AMINO TRANSFERASE 27.5 U/L (17-59); BILIRUBIN,TOTAL 0.84 mg/dL (0.2-1.3); BLOOD UREA NITROGEN 23.4 mg/dL (9-20); CALCIUM 8.25 mg/dL (8.4-10.2); CARBON DIOXIDE 21.8 mmol/L (22-30.0); CREATININE 1.22 mg/dL (0.60-1.10); GLUCOSE 119.9 mg/dL (74-106); POTASSIUM 4.17 mmol/L (3.5-5.1); SODIUM 127.5 mmol/L (134.5-145); TOTAL PROTEIN 5.97 g/dL (6.3-8.2)
[2023-10-15 06:40] LABS: CHLORIDE 103.1 mmol/L (98-107)
[2023-10-15] MEDS: SODIUM CHLORIDE PO SCH (08:33)
--- NOTE | 2023-10-15 09:44 | DCSUM ---
Admission Date Admission Date: 10/12/23 Discharge Date Discharge Date: 10/15/23 Admission Diagnosis Admission Diagnosis: 1. Severe Hyponatremia 2. Dehydration 3. Hypokalemia 4. Hypertension 5. Weakness Discharge Diagnosis Discharge Diagnosis: 1. Severe Hyponatremia - Resolved 2. Dehydration - Resolved 3. Acute Metabolic Encephalopathy - Resolved 4. Hypokalemia - Resolved 5. Hypertension - Chronic, stable 6. Weakness - Improving Hospital Provider Hospital Provider: SAMI WINTER, [facility] [place] Primary Care Physician Primary Care Physician: YADIRA MILLIGAN MD Summary of History and Physical Summary of History and Physical: 88 yo male presented to the ER with complaints of trouble urinating. Patient states he would feel the urge to pee but was not able to produce any. Bladder scan completed and small amount of urine was noted. Sodium was found to be 125.3. BUN 67.8. Creatinine 1.11. Normal sodium for patient appears to be around 134 and BUN typically in the 30s with creatinine in normal range. Patient states he has been experiencing significant weakness at home and difficulties with his balance. Has +3-4 pitting edema bilaterally affecting this. Denies fever, chills, urinary symptoms, chest pain, N/V/D. Hospital Course Subjective: During course of stay patient received IV fluids for treatment of hyponatremia and dehydration. Gently administered due to CHF history. Sodium remaining stable around 129. Started on salt tabs QID to assist. Hypokalemia resolved after replacement. Had one night of confusion but resolved with correction of above. Has had trouble with weakness and balance at home. Was determined to be candidate for swingbed program. D/c inpatient today to [facility] for rehab for safe discharge home. Appearance: Pleasant, No Apparent Distress and Alert HEENT: MMM, Supple and No JVD CVS: No Murmur Abdomen: Soft, Non-Tender and No Distention Respiratory: No Dyspnea Additional Findings: +1-2 pitting edema BLE Vital Signs: Most Recent Vital Signs Temperature 97.8 F 10/15/23 05:15 Temperature Source Temporal Artery Scan 10/15/23 05:15 Temperature Source Infrared 10/11/23 20:58 Pulse Rate 76 10/15/23 05:15 Respiratory Rate 14 10/15/23 05:15 Blood Pressure 142/85 H 10/15/23 05:15 Blood Pressure Mean 104 10/15/23 05:15 Blood Pressure Left Arm 170/83 10/12/23 03:02 Blood Pressure Location Right Arm 10/15/23 05:15 Blood Pressure Position Supine 10/15/23 05:15 O2 Sat by Pulse Oximetry 99 10/15/23 05:15 Oxygen Delivery Method Room Air 10/15/23 05:15 Height 5 ft 7 in 10/12/23 09:32 Weight 140 lb 8 oz 10/14/23 11:44 Telemetry Type Remote Telemetry 10/13/23 01:00 Telemetry Monitoring Continues 10/13/23 01:00 Telemetry Heart Rate 75 10/13/23 01:00 EKG AZ Interval 0.12 10/13/23 01:00 EKG QRS Interval 0.10 10/13/23 01:00 Telemetry Strip Reading SR with PVC's 10/13/23 01:00 Lab Results Last 24 Hours: 10/15/23 06:06 WBC 6.27 RBC 3.02 L Hgb 10.3 L Hct 29.8 L MCV 98.7 H MCH 34.1 H MCHC 34.6 RDW Coeff of Freedom 14.2 Plt Count 167 Immature Gran % (Auto) 0.6 Neut % (Auto) 57.6 Lymph % (Auto) 27.6 Major % (Auto) 10.5 H Eos % (Auto) 3.5 Baso % (Auto) 0.2 Neut # (Auto) 3.6 Lymph # (Auto) 1.7 Major # (Auto) 0.7 Eos # (Auto) 0.2 Baso # (Auto) 0.0 Immature Gran # (Auto) 0.0 Sodium 127.5 L Potassium 4.17 Chloride 103.1 Carbon Dioxide 21.8 L Anion Gap 6.77 BUN 23.4 H Creatinine 1.22 H Estimated GFR (MDRD) 56.00 BUN/Creatinine Ratio 19.18 Glucose 119.9 H Calcium 8.25 L Total Bilirubin 0.84 AST 27.5 ALT 18.2 Alkaline Phosphatase 60.5 Total Protein 5.97 L Albumin 2.92 L Globulin 3.05 Albumin/Globulin Ratio 0.95 Discharge Instructions Discharge Planning: Discharge Planning > 40 minutes If patient is discharged with left ventricular systolic dysfunction: NA Discharged with a beta bernarda? [] If no, why not? [] Discharged with an reema/arb? [] If no, why not? [] DX: HYPONATREMIA, DEHYDRATION ADMIT TO SWINGBED Discharge Medications: Medications at Discharge (Home Meds & RX) atorvastatin 80 mg tablet (Lipitor) 80 mg PO QDAY #90 tabs 02/08/23 enalapril maleate 20 mg tablet 20 mg PO QDAY #90 tabs 04/13/23 omeprazole 20 mg capsule,delayed release 20 mg PO DAILY #90 caps 04/13/23 tamsulosin 0.4 mg capsule 0.4 mg PO BID #180 caps 05/12/23 triamterene 37.5 mg-hydrochlorothiazide 25 mg capsule 1 cap PO .3x week PRN swelling #30 caps 08/12/23 Discharge Plan Discharge Discharge Orders: Discharge Patient (ONCE); Ordered 10/15/23 Ordered By: BEATRICE PHILIP Patient Disposition: DISCH W/I HOSP TO SWING Prescriptions: No Action enalapril maleate 20 mg tablet 20 mg PO QDAY Qty: 90 1RF omeprazole 20 mg capsule,delayed release(DR/EC) 20 mg PO DAILY Qty: 90 1RF atorvastatin [Lipitor] 80 mg tablet 80 mg PO QDAY Qty: 90 1RF tamsulosin 0.4 mg capsule 0.4 mg PO BID Qty: 180 1RF triamterene-hydrochlorothiazid 37.5-25 mg capsule 1 cap PO .3x week PRN (Reason: swelling) Qty: 30 2RF Did you review [place] GAUGE AND WEIGH MACHINE ADJUSTER for ALL controlled substances?: No Discussed opioids are addictive and Narcan is available by prescription or from pharmacy.: No Condition: Stable
[2023-10-15 09:53] VITALS: BP 138/79; PULSE 16; RESP 83; TEMP 98.3
== END 2023-10-15 10:55 | disposition swing bed (61) | DRG 640 ==
LOC: MEDSURG B 20:53 → ED 20:53 → MEDSURG B 10-12 02:59
PROVIDERS: ADMIT Hospitalist; ATTEND Nurse Practitioner Family
DX: R79.89 Other specified abnormal findings of blood chemistry; E87.6 Hypokalemia; I10 Essential (primary) hypertension; R60.0 Localized edema; Z20.822 Contact with and (suspected) exposure to COVID-19; R53.1 Weakness; E87.1 Hypo-osmolality and hyponatremia; E86.0 Dehydration; N18.30 Chronic kidney disease, stage 3 unspecified; Q25.46 Tortuous aortic arch; G93.41 Metabolic encephalopathy

== ENCOUNTER 2024-02-11 16:02 | Inpatient (IN) ==
[2024-02-11 16:21] VITALS: BMI 23.3
--- NOTE | 2024-02-11 16:22 | ED.PDOC ---
General ED Provider: Dr. ELIAS LOYA MD Chief Complaint: Extremity Swelling/Pain Stated Complaint: Patient with history of chronic kidney disease, hypertension, COPD, complains of bilateral swelling of legs over the past several months now noticed fluid seeping out of his left mid leg associate with marked swelling. Also has redness and warmth of both lower extremities. Denies fever, chills, dyspnea, diaphoresis, palpitations, chest pain and lower extremity pain. Okay Time Seen by Provider: 02/11/24 16:15 Mode of Arrival: Walk-In Information Source: Patient and Family Exam Limitations: No limitations Primary Care Provider: YADIRA COBIAN MD Nursing and Triage Documentation Reviewed and Agree: Yes What is Opioid Naive?: *Opioid Naive implies the patient is not already taking opioids or not chronically receiving opioids on a daily basis. *PRN dosing is not "usually" associated with tolerance. *Patients are at higher risk of over-sedation and aspiration. What is Opioid Tolerant?: *Opioid Tolerance implies less than the expected response to an opioid. *Acquired tolerance is defined by the patient taking 60mg of oral morphine daily (or equianalgesic dose of another opioid) for 1 week or more. *Often associated with chronic pain. *May take more than usual dose to achieve desired pain control. Review of Systems Review Of Systems Constitutional: Reports No symptoms Eyes: Reports No symptoms Ears, Nose, Mouth, Throat: Reports No symptoms Respiratory: Reports No symptoms Cardiac: Reports No symptoms GI: Reports No symptoms : Reports No symptoms Musculoskeletal: Reports Other (Bilateral lower extremity swelling, redness, fluid seeping out of the left mid) Skin: Reports Other ( redness per lower extremities) Neurological: Reports No symptoms Endocrine: Reports No symptoms Hematologic/Lymphatic: Reports No symptoms All Other Systems: Reviewed and Negative [facility] Medical History Presence of stent in coronary artery in patient with coronary artery disease I25.10 - Atherosclerotic heart disease of [place] coronary artery without angina pectoris (ICD-10) Z95.5 - Presence of coronary angioplasty implant and graft (ICD-10) Cataracts, bilateral H26.9 - Unspecified cataract (ICD-10) History of fall Z91.81 - History of falling (ICD-10) Family History Mother Dementia FATHER Acute CT Social History Smoking and tobacco status: Former smoker Tobacco: How many years used: 40 How long ago did patient quit smoking: quit 35 years ago Alcohol intake: never Substance use type: does not use Special quan needs: No Agree to transfusion: Yes Adopted: No Caregiver/support person: No Foster care: No Household members: none Housing: house Marital status: W / Lives independently: Yes Number of children: 3 Highest education level completed: some college, no degree Financial difficulty paying for basics: not very hard service: No CHCF: No Current occupational status: retired Pets and animals: Yes History of recent travel: No Do you think of yourself as: straight/heterosexual Current gender identity: male Seatbelt use: always Drives intoxicated or rides with intoxicated boom truck driver: No Current diet type/program: regular Water heater temperature set < 120 degrees: Yes Working smoke detector in home: Yes Fire extinguisher in home: Yes Carbon monoxide detector in home: No Surgical History History of cystoscopy 2013 romero Z98.890 - Other specified postprocedural states (ICD-10) S/p total knee replacement, 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 Z96.653 - Presence of artificial knee joint, bilateral (ICD-10) Bilateral inguinal hernia left caesar 2014 K40.20 - Bilateral inguinal hernia, without obstruction or gangrene, not specified as recurrent (ICD-10) History of left heart catheterization one blocked with collateral Z98.890 - Other specified postprocedural states (ICD-10) Physical Exam Physical Exam Appearance: Reports Well-appearing Ill-appearing: None Pain Distress: None Eyes: Reports TOOTIE, EOMI and Conjunctiva clear ENT: Reports Ears normal, Nose normal and Oropharynx normal Neck: Supple Respiratory: Reports Airway patent Cardiovascular: Reports RRR, Pulses normal, No rub and No murmur GI/: Reports Soft, Nontender, No masses and Bowel sounds normal Musculoskeletal: Reports Normal strength, ROM intact, No edema, No calf tenderness and Other (Bilateral lower extremity circumference of the right mid calf is 34 cm compared to 34 cm of the left. There is fluid seeping from the left mid lindo with erythema and warmth noted. There is no calf tenderness there is a negative Homans' sign. Bilateral pedis pulses 2+.) Skin: Reports Warm and Dry Neurological: Reports Sensation intact, Motor intact, Reflexes intact and Cranial nerves intact Psychiatric: Reports Affect appropriate and Mood appropriate Physician Notification Case Discussed Physician Notified: Discussed with Dr. Akhil Cobian Time of Notification: 18:00 Comments: After discussion of all laboratory data ultrasound findings recommendations to admit to hospitalist Physician Notified: Discussed with Barby Rosen at 1805 Time of Notification: 18:05 Comments: Discussion all laboratory data clinical findings and ultrasound of lower extremities recommendations for observation Critical Care Note Critical Care Note Total Critical Care Time (mins): 20 Course Course 02/11/24 15:17 02/11/24 16:22 Orders, Labs, Meds: Lab Review 02/11/24 02/11/24 15:17 16:22 WBC 5.54 RBC 3.24 L Hgb 10.7 L Hct 32.0 L MCV 98.8 H MCH 33.0 H MCHC 33.4 RDW Coeff of Freedom 13.3 Plt Count 123 L Immature Gran % (Auto) 0.7 Neut % (Auto) 56.1 Lymph % (Auto) 25.3 Tate % (Auto) 14.8 H Eos % (Auto) 2.7 Baso % (Auto) 0.4 Neut # (Auto) 3.1 Lymph # (Auto) 1.4 Tate # (Auto) 0.8 Eos # (Auto) 0.2 Baso # (Auto) 0.0 Immature Gran # (Auto) 0.0 PT 10.7 INR 1.03 Sodium 124.1 L Potassium 3.05 L Chloride 90.4 L Carbon Dioxide 24.9 Anion Gap 11.85 BUN 33.8 H Creatinine 1.10 Estimated GFR (MDRD) 63.00 BUN/Creatinine Ratio 30.72 Glucose 93.6 Calcium 8.48 Magnesium 1.93 Total Bilirubin 0.75 AST 30.5 ALT 19.3 Alkaline Phosphatase 61.1 Troponin I 0.012 NT-Pro-B Natriuret Pep 611 H Total Protein 6.92 Albumin 3.68 Globulin 3.24 Albumin/Globulin Ratio 1.13 Orders Category Date Time Status EKG-(ED ONLY) Stat CARDIO 02/11/24 17:32 Completed Saline Lock [ED IV/MEDIPORT/POWERPORT] .ONCE EMERGENCY 02/11/24 16:22 Active BLOOD CULTURE (ED ONLY) Stat LAB 02/11/24 17:15 Received CBC W/ AUTO DIFF Stat LAB 02/11/24 15:17 Completed CMP [COMPREHENSIVE METABOLIC PANEL] Stat LAB 02/11/24 16:22 Completed MAGNESIUM Stat LAB 02/11/24 16:22 Completed NT-PROBNP(ED) Stat LAB 02/11/24 16:22 Completed PT WITH INR Stat LAB 02/11/24 16:22 Completed TROPONIN I Stat LAB 02/11/24 16:22 Completed 0.9 % Sodium Chloride [Saline Flush] Meds 02/11/24 16:22 Active 1 syr IVF PRN PRN Furosemide [Lasix] Meds 02/11/24 17:43 Discontinued 20 mg IVP ONCE STA Potassium Chloride [K-Dur] Meds 02/11/24 17:56 Discontinued 40 meq PO ONCE STA Vancomycin/Water For Inj (Peg) [Vancomycin 1 Gram/200 Meds 02/11/24 17:31 Active ml Premix] 1 gm in 200 ml IV ONCE CHEST, 1V AP ONLY Stat RADS 02/11/24 16:22 Completed ULTRASOUND VENOUS SCAN BOBBY LEGS [U/S VENOUS SCAN BOBBY RADS 02/11/24 16:23 Completed LEGS] Stat Medications Generic Name Dose Route Start Last Admin Trade Name Freq PRN Reason Stop Dose Admin VANCOMYCIN/WATER FOR INJ (PEG) 1 gm in 200 mls @ 200 mls/hr 02/11/24 17:31 Vancomycin 1 Gram/200 Ml Premix IV 02/11/24 18:30 ONCE ONE Sodium Chloride 1 syr 02/11/24 16:22 0.9% Sodium Chloride 10 Ml Disp.Syrin IVF PRN PRN To flush IV Discontinued Medications Generic Name Dose Route Start Last Admin Trade Name Freq PRN Reason Stop Dose Admin Furosemide 20 mg 02/11/24 17:43 Furosemide Inj 20 Mg/2 Ml Vial IVP 02/11/24 17:44 ONCE STA Potassium Chloride 40 meq 02/11/24 17:56 Potassium Chloride 20 Meq Tab PO 02/11/24 17:57 ONCE STA Vital Signs: Temp Pulse Resp BP Pulse Ox 02/11/24 16:18 97.8 F 79 18 148/68 H 97 Discharge Plan Discharge Patient Disposition: PLACED OBSERVATION Discharge Problem: Acute right-sided CHF (congestive heart failure), Dependent edema, Cellulitis of both lower extremities Prescriptions: No Action omeprazole 20 mg capsule,delayed release(DR/EC) 20 mg PO DAILY Qty: 90 1RF atorvastatin 80 mg tablet See Rx Instructions .ROUTE .COMPLEX Qty: 90 1RF Dose Instruction: TAKE 1 TABLET DAILY Rx Instructions: TAKE 1 TABLET DAILY sodium chloride 1,000 mg Tablet,Soluble 1,000 mg PO QID Qty: 120 0RF tamsulosin 0.4 mg capsule 0.4 mg PO BID Qty: 180 1RF enalapril maleate 20 mg tablet 30 mg PO DAILY Qty: 135 1RF hydrochlorothiazide 25 mg tablet 25 mg PO QAM PRN (Reason: swelling) Qty: 90 1RF finasteride 5 mg tablet 5 mg PO DAILY Qty: 90 1RF Did you review [place] SENIOR SAFETY SUPPORT MANAGER for ALL controlled substances?: Not Applicable ED Provider: ELIAS LOYA Condition: Stable Physician Progress Note: Patient history of hypertension and congestive heart failure complains of bilateral lower extremity swelling for the past several months noticed seeping of fluid from the left mid calf since yesterday denies fever, chills, calf pain, dyspnea, chest pain, diaphoresis palpitations. Venous Dopplers both lower extremities interpretation by the radiologist is consistent with no evidence of deep venous thrombosis in the bilateral lower extremities and no superficial venous thrombosis. Portable chest x-ray interpretation by radiologist consistent with mild linear atelectasis versus scarring in the left lung base there is a small linear opacity left lung base After 2 sets of blood cultures the patient was administered vancomycin 1 g IV piggyback Patient given Lasix 20 mg IV 174-EKG consistent with normal sinus rhythm first-degree block left axis deviation right bundle branch block Differential diagnosis: 1) right-sided congestive heart failure 2) dependent edema 3) cellulitis bilateral lower extremities Discussed with Barby Rosen at 1805 for observation with telemetry.
--- NOTE | 2024-02-11 16:40 | DI ---
EXAM: CHEST RADIOGRAPH (1 VIEW) TECHNIQUE: Frontal Chest Radiograph. HISTORY: Cough. COMPARISON: Chest radiograph 10/11/2023 FINDINGS: Lines, Tubes, Devices: None Lungs and Pleura: Small linear opacity at the left lung base. No pleural effusion. No pneumothorax . Cardiomediastinum: Normal cardiomediastinal silhouette. Mild aortic calcifications. Bones/Soft Tissues: No acute osseous abnormality. No soft tissue abnormality. Upper Abdomen: Cholecystectomy clips. IMPRESSION: Mild linear atelectasis/scarring at the left lung base.
--- NOTE | 2024-02-11 17:06 | US ---
EXAM: BILATERAL LOWER EXTREMITY DEEP VENOUS ULTRASOUND WITH DOPPLER IMAGING HISTORY: Pain swelling.. TECHNIQUE: Davis-scale ultrasound with compression maneuvers and color and spectral Doppler ultrasound at rest and with augmentation of the veins was performed. Images were obtained and stored in a perm anent archive. COMPARISON: None FINDINGS: Somewhat limited on both sides due to shadowing calcific plaque from the arterial systems. RIGHT LOWER EXTREMITY: Common Femoral Vein: Normal compression. Normal flow on color Doppler images. Normal response to augm entation. Deep Femoral Vein: Normal compression. Normal flow on color Doppler images. Normal response to augmen tation. Femoral Vein: Normal compression. Normal flow on color Doppler images. Normal response to augmentatio n. Popliteal Vein: Normal compression. Normal flow on color Doppler images. Normal response to augmentat ion. Peroneal Vein: Normal compression. Normal flow on color Doppler images. Posterior Tibial Vein: Normal compression. Normal flow on color Doppler images. Anterior Tibial Vein: Normal compression. Normal flow on color Doppler images. Greater Saphenous Vein (Superficial): Normal compression. Normal flow on color Doppler images. Other: No reflux. Subcutaneous edema in the lower leg. LEFT LOWER EXTREMITY: Common Femoral Vein: Normal compression. Normal flow on color Doppler images. Normal response to augm entation. Deep Femoral Vein: Normal compression. Normal flow on color Doppler images. Normal response to augmen tation. Femoral Vein: Normal compression. Normal flow on color Doppler images. Normal response to augmentatio n. Popliteal Vein: Normal compression. Normal flow on color Doppler images. Normal response to augmentat ion. Peroneal Vein: Normal compression. Normal flow on color Doppler images. Posterior Tibial Vein: Normal compression. Normal flow on color Doppler images. Anterior Tibial Vein: Normal compression. Normal flow on color Doppler images. Greater Saphenous Vein (Superficial): Normal compression. Normal flow on color Doppler images. Other: No reflux. Subcutaneous edema in the lower leg. IMPRESSION: No deep venous thrombosis (DVT) in the bilateral lower extremities. No superficial venous thrombosis (SVT) in the bilateral lower extremities at the levels examined.
[2024-02-11 17:25] LABS: BASOPHILS % (AUTO) 0.4 % (0.0-3.0); EOSINOPHILS # (AUTO) 0.2 K/ul (0.0-0.7); EOSINOPHILS % (AUTO) 2.7 % (0.0-7.0); HEMOGLOBIN 10.7 g/dl (14.0-18.0); IMMATURE GRANULOCYTE % (AUTO) 0.7 % (0.0-5.0); LYMPHOCYTES # (AUTO) 1.4 K/uL (0.60-3.4); LYMPHOCYTES % (AUTO) 25.3 (10.0-50.0); MEAN CORPUSCULAR HGB CONC 33.4 (31.8-35.4); MEAN CORPUSCULAR VOLUME 98.8 fl (80.0-94.0); MONOCYTES # (AUTO) 0.8 K/uL (0.4-2.0); MONOCYTES % (AUTO) 14.8 (0-10); NEUTROPHILS # (AUTO) 3.1 K/ul (2.0-6.9); NEUTROPHILS % (AUTO) 56.1 % (42.2-75.2); PLATELET COUNT 123 10^3/uL (140-440); RDW COEFFICIENT OF VARIATION 13.3 % (11.6-14.8); RED BLOOD COUNT 3.24 10^6/ul (4.70-6.10); WHITE BLOOD COUNT 5.54 K/ul (4.2-10.2)
[2024-02-11 17:37] LABS: PROTHROMBIN TIME 10.7 SEC (9.3-11.0)
[2024-02-11 17:39] LABS: ALANINE AMINOTRANSFERASE 19.3 U/L (0-50); ALBUMIN 3.68 g/dL (3.5-5.0); ALKALINE PHOSPHATASE 61.1 U/L (56-119); ASPARTATE AMINO TRANSFERASE 30.5 U/L (17-59); BILIRUBIN,TOTAL 0.75 mg/dL (0.2-1.3); BLOOD UREA NITROGEN 33.8 mg/dL (9-20); CALCIUM 8.48 mg/dL (8.4-10.2); CARBON DIOXIDE 24.9 mmol/L (22-30.0); CHLORIDE 90.4 mmol/L (98-107); CREATININE 1.1 mg/dL (0.60-1.10); GLUCOSE 93.6 mg/dL (74-106); MAGNESIUM 1.93 mg/dL (1.6-2.3); POTASSIUM 3.05 mmol/L (3.5-5.1); SODIUM 124.1 mmol/L (134.5-145); TOTAL PROTEIN 6.92 g/dL (6.3-8.2)
[2024-02-11 17:50] LABS: TROPONIN I 0.012 ng/ml (0.0000-0.120)
[2024-02-11] MEDS ORDERED: ZOFRAN 4 MG/2 ML IVP PRN (18:15)
[2024-02-11] MEDS: K-DUR PO STA (18:19)
[2024-02-11] MEDS: LASIX IVP STA (18:19)
[2024-02-11] MEDS: VANCOMYCIN 1 GRAM/200 ML PREMIX 1 GM/200 ML BAG IV ONE (18:20)
[2024-02-11 18:33] LABS: SARS COV-2 RNA RAPID NAAT NEGATIVE (NEGATIVE)
[2024-02-11] MEDS: FLOMAX PO SCH (21:45)
[2024-02-11] MEDS: TYLENOL PO PRN (23:47)
[2024-02-12] MEDS: LASIX IVP SCH (02:12)
[2024-02-12 05:18] LABS: BASOPHILS % (AUTO) 0.3 % (0.0-3.0); EOSINOPHILS # (AUTO) 0.1 K/ul (0.0-0.7); EOSINOPHILS % (AUTO) 1.4 % (0.0-7.0); HEMATOCRIT 31.9 % (42.0-52.0); IMMATURE GRANULOCYTE % (AUTO) 0.6 % (0.0-5.0); LYMPHOCYTES # (AUTO) 1.9 K/uL (0.60-3.4); LYMPHOCYTES % (AUTO) 26.9 (10.0-50.0); MEAN CORPUSCULAR HEMOGLOBIN 32.4 pg (27.0-31.0); MEAN CORPUSCULAR HGB CONC 34.5 (31.8-35.4); MEAN CORPUSCULAR VOLUME 94.1 fl (80.0-94.0); MONOCYTES # (AUTO) 0.9 K/uL (0.4-2.0); MONOCYTES % (AUTO) 13.4 (0-10); NEUTROPHILS % (AUTO) 57.4 % (42.2-75.2); RDW COEFFICIENT OF VARIATION 13.2 % (11.6-14.8); RED BLOOD COUNT 3.39 10^6/ul (4.70-6.10)
[2024-02-12 05:29] LABS: PLATELET COUNT 200 10^3/uL (140-440)
[2024-02-12 05:37] LABS: ALANINE AMINOTRANSFERASE 19.6 U/L (0-50); ALBUMIN 3.55 g/dL (3.5-5.0); ALKALINE PHOSPHATASE 73.8 U/L (56-119); ASPARTATE AMINO TRANSFERASE 29.5 U/L (17-59); BILIRUBIN,TOTAL 0.82 mg/dL (0.2-1.3); BLOOD UREA NITROGEN 30.7 mg/dL (9-20); CALCIUM 8.63 mg/dL (8.4-10.2); CARBON DIOXIDE 29.5 mmol/L (22-30.0); CREATININE 1.32 mg/dL (0.60-1.10); GLUCOSE 97.3 mg/dL (74-106); POTASSIUM 2.96 mmol/L (3.5-5.1); SODIUM 127.4 mmol/L (134.5-145); TOTAL PROTEIN 6.8 g/dL (6.3-8.2)
[2024-02-12] MEDS: LIPITOR PO SCH (09:07)
[2024-02-12] MEDS: K-DUR PO ONE ×2 (09:08→15:24)
[2024-02-12] MEDS: VASOTEC PO SCH (09:09)
[2024-02-12] MEDS: PROSCAR PO SCH (09:10)
[2024-02-12] MEDS: SODIUM CHLORIDE PO SCH (09:10)
[2024-02-12] MEDS: VANCOMYCIN 1 GRAM/200 ML PREMIX 1 GM/200 ML BAG IV SCH (09:59)
[2024-02-12] MEDS: PRILOSEC PO SCH (09:59)
--- NOTE | 2024-02-12 11:42 | PCM ---
Date of Service Date Seen by Provider: 02/12/24 Time Seen by Provider: 09:10 Admit Day/Time Admission Date: 02/11/24 Admission Time: 18:11 Reason for Admission Chief Complaint: CELLULITIS, PITTING EDEMA Hospital Provider Hospital Provider: JOEY RYAN PA-C, [facility] Primary Care Physician Primary Care Physician: YADIRA COBIAN MD History of Present Illness History of Present Illness: Patient is an 88 year old male from home with pmhx of CKD, dependent edema, BPH, anemia, GERD, COPD, hypertension, hyperlipidemia who presents for worsening lower ext edema and redness of LLE. Patient states for the past week he's had blisters on his left leg that opened up and then it started getting red. States his swelling has been worsening over the last month or two. He denies hx of CHF. Doesn't think he's had an echo in the past year. He denies chest pain or SOB. In ER he was found to have cellulitis, mildly elevated BNP. He was given vanc. Admitted to med surg. Blood cultures have came back positive for gram positive rods overnight. Pt noted to be in a fib on tele, confirmed with EKG this morning. No hx of a fib per patient or daughter. CHADVASC score 3. Discussed anticoagulation. Pt lives at home with his son. His two daughters are nurses. Strong family support. Case Discussed With Case Discussed With: Patient's case was discussed with the ER Physicians, Dr. Ramos. 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 Z96.653 - Presence of artificial knee joint, bilateral (ICD-10) Bilateral inguinal hernia left caesar 2014 K40.20 - Bilateral inguinal hernia, without obstruction or gangrene, not specified as recurrent (ICD-10) History of left heart catheterization one blocked with collateral Z98.890 - Other specified postprocedural states (ICD-10) Family History Mother Dementia FATHER Acute [place] Social History Smoking and tobacco status: Former smoker Tobacco: How many years used: 40 How long ago did patient quit smoking: quit 35 years ago Alcohol intake: never Substance use type: does not use Special quan needs: No Agree to transfusion: Yes Adopted: No Caregiver/support person: No Foster care: No Household members: none Housing: house Marital status: W / Lives independently: Yes Number of children: 3 Highest education level completed: some college, no degree Financial difficulty paying for basics: not very hard service: No MCFP: No Current occupational status: retired Pets and animals: Yes History of recent travel: No Do you think of yourself as: straight/heterosexual Current gender identity: male Seatbelt use: always Drives intoxicated or rides with intoxicated courtesy van driver: No Current diet type/program: regular Water heater temperature set < 120 degrees: Yes Working smoke detector in home: Yes Fire extinguisher in home: Yes Carbon monoxide detector in home: No Allergies Allergies Allergy/AdvReac Type Severity Reaction Status Date / Time ferrous sulfate AdvReac Unknown Verified 02/11/24 15:34 Current Medications Home Medications tamsulosin 0.4 mg capsule 0.4 mg PO BID #180 caps 05/12/23 [Rx Confirmed 02/11/24 Last Taken Unknown] sodium chloride 1,000 mg soluble tablet 1,000 mg PO QID #120 tabs 10/25/23 [Rx Confirmed 02/11/24 Last Taken Unknown] omeprazole 20 mg capsule,delayed release 20 mg PO DAILY #90 caps 12/27/23 [Rx Confirmed 02/11/24 Last Taken Unknown] enalapril maleate 20 mg tablet 30 mg (1.5 x 20 mg) PO DAILY #135 tabs 01/03/24 [Rx Confirmed 02/11/24 Last Taken Unknown] finasteride 5 mg tablet 5 mg PO DAILY #90 tabs 01/03/24 [Rx Confirmed 02/11/24 Last Taken Unknown] hydrochlorothiazide 25 mg tablet 25 mg PO QAM PRN swelling #90 tabs 01/03/24 [Rx Confirmed 02/11/24 Last Taken Unknown] atorvastatin 80 mg tablet See Rx Instructions .Route .COMPLEX #90 tabs 02/07/24 [Rx Confirmed 02/11/24 Last Taken Unknown] Home Acetaminophen (Acetaminophen 325 Mg Tablet) 650 mg PO Q4H PRN PRN Reason: Mild Pain Last Admin: 02/11/24 23:47 Dose: 650 mg Atorvastatin Calcium (Atorvastatin Calcium 20 Mg Tablet) 80 mg PO DAILY [facility] Last Admin: 02/12/24 09:07 Dose: 80 mg Enalapril Maleate (Enalapril Maleate 20 Mg Tablet) 30 mg PO DAILY [facility] Last Admin: 02/12/24 09:09 Dose: 30 mg Enoxaparin Sodium (Enoxaparin Sodium 100 Mg/Ml Syr) 70 mg SUBCUT Q12HR [facility] Last Admin: 02/12/24 11:57 Dose: 70 mg Finasteride (Finasteride 5 Mg Tablet) 5 mg PO DAILY [facility] Last Admin: 02/12/24 09:10 Dose: 5 mg Furosemide (Furosemide Inj 20 Mg/2 Ml Vial) 20 mg IVP Q8HR [facility] Last Admin: 02/12/24 05:53 Dose: 20 mg VANCOMYCIN/WATER FOR INJ (PEG) (Vancomycin 1 Gram/200 Ml Premix) 1 gm in 200 mls @ 200 mls/hr IV DAILY [facility] Stop: 02/15/24 08:59 Last Admin: 02/12/24 09:59 Dose: 200 mls/hr Omeprazole (Omeprazole 20 Mg Capsule.Dr) 20 mg PO QDAC2 [facility] Last Admin: 02/12/24 09:59 Dose: 20 mg Ondansetron HCl (Ondansetron Hcl/Pf 4 Mg/2 Ml Sdv) 4 mg IVP Q6H PRN PRN Reason: Nausea / Vomiting Potassium Chloride (Potassium Chloride 20 Meq Tab) 40 meq PO ONCE ONE Stop: 02/12/24 15:01 Sodium Chloride (0.9% Sodium Chloride 10 Ml Disp.Syrin) 1 syr IVF PRN PRN PRN Reason: To flush IV Sodium Chloride (Sodium Chloride 1 Gm Tablet) 1 gm PO QID [facility] Last Admin: 02/12/24 09:10 Dose: 1 gm Tamsulosin HCl (Tamsulosin Hcl 0.4 Mg Cap.Er.24h) 0.4 mg PO BID [facility] Last Admin: 02/12/24 09:09 Dose: 0.4 mg Discontinued Medications Furosemide (Furosemide Inj 20 Mg/2 Ml Vial) 20 mg IVP ONCE STA Stop: 02/11/24 17:44 Last Admin: 02/11/24 18:19 Dose: 20 mg VANCOMYCIN/WATER FOR INJ (PEG) (Vancomycin 1 Gram/200 Ml Premix) 1 gm in 200 mls @ 200 mls/hr IV ONCE ONE Stop: 02/11/24 18:30 Last Admin: 02/11/24 18:20 Dose: 200 mls/hr Potassium Chloride (Potassium Chloride 20 Meq Tab) 40 meq PO ONCE STA Stop: 02/11/24 17:57 Last Admin: 02/11/24 18:19 Dose: 40 meq Potassium Chloride (Potassium Chloride 20 Meq Tab) 40 meq PO ONCE ONE Stop: 02/12/24 08:04 Last Admin: 02/12/24 09:08 Dose: 40 meq Opioid Naive vs. Tolerant Does Patient Take Opioids?: No Is Patient Opioid Naive?: Yes What is Opioid Naive?: *Opioid Naive implies the patient is not already taking opioids or not chronically receiving opioids on a daily basis. *PRN dosing is not "usually" associated with tolerance. *Patients are at higher risk of over-sedation and aspiration. Is Patient Opioid Tolerant?: No What is Opioid Tolerant?: *Opioid Tolerance implies less than the expected response to an opioid. *Acquired tolerance is defined by the patient taking 60mg of oral morphine daily (or equianalgesic dose of another opioid) for 1 week or more. *Often associated with chronic pain. *May take more than usual dose to achieve desired pain control. Review of Systems Constitutional: Reports Weakness; Denies Fever Head: Reports Normocephalic and Atraumatic Cardiovascular: Reports Edema; Denies Chest pain or Chest Pressure Respiratory: Denies Cough or Shortness of air Gastrointestinal: Denies Nausea, Vomiting, Diarrhea, Abdominal pain or Melena Genitourinary: Denies Dysuria Dermatologic: Reports Rashes and Skin Changes Neurological: Reports Weakness; Denies Dizziness or Syncope Physical examination Most Recent Vital Signs: Most Recent Vital Signs Temperature 98.3 F 02/12/24 10:00 Temperature Source Temporal Artery Scan 02/12/24 10:00 Temperature Source Oral 02/11/24 16:18 Pulse Rate 61 02/12/24 10:00 Respiratory Rate 17 02/12/24 10:00 Blood Pressure 125/69 02/12/24 10:00 Blood Pressure Mean 87 02/12/24 10:00 Blood Pressure Left Arm 156/84 02/11/24 19:21 Blood Pressure Location Right Arm 02/12/24 10:00 Blood Pressure Position Sitting 02/12/24 10:00 O2 Sat by Pulse Oximetry 98 02/12/24 10:00 Oxygen Delivery Method Room Air 02/12/24 11:00 Height 5 ft 7 in 02/11/24 19:21 Weight 149 lb 3.2 oz 02/11/24 19:21 Telemetry Type Remote Telemetry 02/12/24 07:00 Telemetry Monitoring Continues 02/12/24 07:00 Irregular Telemetry Rate (Approximate) 60-70 BPM 02/12/24 07:00 Telemetry Heart Rate 75 02/11/24 11:47 EKG QRS Interval 0.14 H 02/12/24 07:00 Telemetry Strip Reading Afib w/ BBB 02/12/24 07:00 Appearance: Positive Well-appearing, Well-nourished, No Apparent Distress and Alert and Oriented x3 Skin: Positive Rashes (+erythema of left lower anterior leg with small open areas noted. Warmth noted. ), [place], Warm and Good Turgor HEENT: Positive Normocephalic and Atraumatic Neck: Positive Supple and Midline Trachea Chest/Lungs: Positive Clear to Auscultation Bilaterally; Negative Rales, Rhonci or Wheezes Heart: Positive Irregular Rhythm GI/: Positive Soft, Nontender, Bowel Sounds Normal and No Distention Extremities: Positive Edema ( 2+ pitting edema gee lower ext, improved, wrinkles noted in feet which is an improvement per patient ) Neurological: Positive Cranial Nerves Intact, Alert, Oriented and Other (+generalized weakness ) Psychiatric: Positive Oriented x4, Appropriate Mood and Appropriate Affect Labs This Visit Labs This Visit: Labs This Visit 02/11/24 02/11/24 02/11/24 15:17 16:22 18:15 WBC 5.54 RBC 3.24 L Hgb 10.7 L Hct 32.0 L MCV 98.8 H MCH 33.0 H MCHC 33.4 RDW Coeff of [place] 13.3 Plt Count 123 L Immature Gran % (Auto) 0.7 Neut % (Auto) 56.1 Lymph % (Auto) 25.3 Gates % (Auto) 14.8 H Eos % (Auto) 2.7 Baso % (Auto) 0.4 Neut # (Auto) 3.1 Lymph # (Auto) 1.4 Gates # (Auto) 0.8 Eos # (Auto) 0.2 Baso # (Auto) 0.0 Immature Gran # (Auto) 0.0 PT 10.7 INR 1.03 Sodium 124.1 L Potassium 3.05 L Chloride 90.4 L Carbon Dioxide 24.9 Anion Gap 11.85 BUN 33.8 H Creatinine 1.10 Estimated GFR (MDRD) 63.00 BUN/Creatinine Ratio 30.72 Glucose 93.6 Calcium 8.48 Magnesium 1.93 Total Bilirubin 0.75 AST 30.5 ALT 19.3 Alkaline Phosphatase 61.1 Troponin I 0.012 NT-Pro-B Natriuret Pep 611 H Total Protein 6.92 Albumin 3.68 Globulin 3.24 Albumin/Globulin Ratio 1.13 SARS CoV-2 RNA Rapid IVANNA Negative 02/12/24 04:34 WBC 7.00 RBC 3.39 L Hgb 11.0 L Hct 31.9 L MCV 94.1 H MCH 32.4 H MCHC 34.5 RDW Coeff of [place] 13.2 Plt Count 200 D Immature Gran % (Auto) 0.6 Neut % (Auto) 57.4 Lymph % (Auto) 26.9 Gates % (Auto) 13.4 H Eos % (Auto) 1.4 Baso % (Auto) 0.3 Neut # (Auto) 4.0 Lymph # (Auto) 1.9 Gates # (Auto) 0.9 Eos # (Auto) 0.1 Baso # (Auto) 0.0 Immature Gran # (Auto) 0.0 PT INR Sodium 127.4 L Potassium 2.96 L Chloride 91.0 L Carbon Dioxide 29.5 Anion Gap 9.86 BUN 30.7 H Creatinine 1.32 H Estimated GFR (MDRD) 51.00 BUN/Creatinine Ratio 23.25 Glucose 97.3 Calcium 8.63 Magnesium Total Bilirubin 0.82 AST 29.5 ALT 19.6 Alkaline Phosphatase 73.8 Troponin I NT-Pro-B Natriuret Pep Total Protein 6.80 Albumin 3.55 Globulin 3.25 Albumin/Globulin Ratio 1.09 SARS CoV-2 RNA Rapid IVANNA Microbiology This Visit 02/11/24 17:15 Blood Blood Culture - Preliminary Imaging Imaging: EXAM: CHEST RADIOGRAPH (1 VIEW) TECHNIQUE: Frontal Chest Radiograph. HISTORY: Cough. COMPARISON: Chest radiograph 10/11/2023 FINDINGS: Lines, Tubes, Devices: None Lungs and Pleura: Small linear opacity at the left lung base. No pleural effusion. No pneumothorax. Cardiomediastinum: Normal cardiomediastinal silhouette. Mild aortic calcifications. Bones/Soft Tissues: No acute osseous abnormality. No soft tissue abnormality. Upper Abdomen: Cholecystectomy clips. IMPRESSION: Mild linear atelectasis/scarring at the left lung base. EXAM: BILATERAL LOWER EXTREMITY DEEP VENOUS ULTRASOUND WITH DOPPLER IMAGING HISTORY: Pain swelling.. TECHNIQUE: Davis-scale ultrasound with compression maneuvers and color and spect ral Doppler ultrasound at rest and with augmentation of the veins was performed. Images were obtained and stored in a permanent archive. COMPARISON: None FINDINGS: Somewhat limited on both sides due to shadowing calcific plaque from the arterial systems. RIGHT LOWER EXTREMITY: Common Femoral Vein: Normal compression. Normal flow on color Doppler images. Normal response to augmentation. Deep Femoral Vein: Normal compression. Normal flow on color Doppler images. Normal response to augmentation. Femoral Vein: Normal compression. Normal flow on color Doppler images. Normal response to augmentation. Popliteal Vein: Normal compression. Normal flow on color Doppler images. Normal response to augmentation. Peroneal Vein: Normal compression. Normal flow on color Doppler images. Posterior Tibial Vein: Normal compression. Normal flow on color Doppler images. Anterior Tibial Vein: Normal compression. Normal flow on color Doppler images. Greater Saphenous Vein (Superficial): Normal compression. Normal flow on color Doppler images. Other: No reflux. Subcutaneous edema in the lower leg. LEFT LOWER EXTREMITY: Common Femoral Vein: Normal compression. Normal flow on color Doppler images. Normal response to augmentation. Deep Femoral Vein: Normal compression. Normal flow on color Doppler images. Normal response to augmentation. Femoral Vein: Normal compression. Normal flow on color Doppler images. Normal response to augmentation. Popliteal Vein: Normal compression. Normal flow on color Doppler images. Normal response to augmentation. Peroneal Vein: Normal compression. Normal flow on color Doppler images. Posterior Tibial Vein: Normal compression. Normal flow on color Doppler images. Anterior Tibial Vein: Normal compression. Normal flow on color Doppler images. Greater Saphenous Vein (Superficial): Normal compression. Normal flow on color Doppler images. Other: No reflux. Subcutaneous edema in the lower leg. IMPRESSION: No deep venous thrombosis (DVT) in the bilateral lower extremities. No superficial venous thrombosis (SVT) in the bilateral lower extremities at the levels examined. EKG Interpretation EKG Interpretation: a fib, HR 67, no stemi Review Statement Review Statement: I have independently reviewed and interpreted the labs/EKGs/imaging that were ordered by the ER provider. I have reviewed all outside records that are available currently in our EMR including imaging/notes/labs from previous visits. Plan Plan: 1. Cellulitis of left lower extremity - Complicated by peripheral edema. Blood culture positive for gram positive rods, likely contaminant, but will repeat. Pt is nontoxic. Cont vanc. 2. Worsening dependent edema - BNP mildly elevated, could be in setting of a fib. No recent echo, will order. Lasix 20 mg iv q8hrs. 3. A fib, new onset - CHADVASC of 3. Discussed pros and cons, risks of bleeding, etc. Pt has no contraindications. Will start anticoagulation. Daughters in agreement. 4. Hyperlipidemia - Cont home meds 5. Hypertension - Cont home meds 6. BPH - Cont home meds 7. Hyponatremia, acute on chronic - Improved today. Hold HCTZ. Fluid restrict. Repeat in AM. DVT Prophylaxis: Lovenox Time Spent: Greater than 80 minutes spent with patient, 50% of the time spent with this patient was devoted to counseling and coordination of care. [facility] minutes spent discussing advance care planning. Admit to: Made inpatient today Discussed Plan of Care with Dr. Bonita Cobian. Medications Medication Orders: Medications Ordered Category Date Time Status 0.9 % Sodium Chloride [Saline Flush] Meds 02/11/24 16:22 Active 1 syr IVF PRN PRN Acetaminophen [Tylenol] Meds 02/11/24 18:15 Active 650 mg PO Q4H PRN Atorvastatin Calcium [Lipitor] Meds 02/12/24 09:00 Active 80 mg PO DAILY Enalapril Maleate [Vasotec] Meds 02/12/24 09:00 Active 30 mg PO DAILY Enoxaparin Sodium [Lovenox] Meds 02/12/24 10:45 Active 70 mg SUBCUT Q12HR Finasteride [Proscar] Meds 02/12/24 09:00 Active 5 mg PO DAILY Furosemide [Lasix] Meds 02/12/24 02:00 Active 20 mg IVP Q8HR Omeprazole [Prilosec] Meds 02/12/24 09:00 Active 20 mg PO QDAC2 Ondansetron HCl/Pf [Zofran 4 mg/2 ml] Meds 02/11/24 18:15 Active 4 mg IVP Q6H PRN Potassium Chloride [K-Dur] Meds 02/12/24 15:00 Once 40 meq PO ONCE ONE Sodium Chloride Meds 02/12/24 09:00 Active 1 gm PO QID Tamsulosin HCl [Flomax] Meds 02/11/24 21:30 Active 0.4 mg PO BID Vancomycin/Water For Inj (Peg) [Vancomycin 1 Gram/200 Meds 02/12/24 09:00 Active ml Premix] 1 gm in 200 ml IV DAILY
[2024-02-12] MEDS: LOVENOX SUBCUT SCH (11:57)
[2024-02-13 05:27] LABS: BASOPHILS % (AUTO) 0.4 % (0.0-3.0); EOSINOPHILS # (AUTO) 0.1 K/ul (0.0-0.7); EOSINOPHILS % (AUTO) 1.6 % (0.0-7.0); HEMATOCRIT 32.1 % (42.0-52.0); HEMOGLOBIN 10.9 g/dl (14.0-18.0); IMMATURE GRANULOCYTE # (AUTO) 0.1 (0.0-1.0); IMMATURE GRANULOCYTE % (AUTO) 1.2 % (0.0-5.0); LYMPHOCYTES # (AUTO) 1.7 K/uL (0.60-3.4); LYMPHOCYTES % (AUTO) 30.4 (10.0-50.0); MEAN CORPUSCULAR HEMOGLOBIN 32.6 pg (27.0-31.0); MEAN CORPUSCULAR VOLUME 96.1 fl (80.0-94.0); MONOCYTES # (AUTO) 0.7 K/uL (0.4-2.0); MONOCYTES % (AUTO) 13.1 (0-10); NEUTROPHILS % (AUTO) 53.3 % (42.2-75.2); PLATELET COUNT 204 10^3/uL (140-440); RDW COEFFICIENT OF VARIATION 13.4 % (11.6-14.8); RED BLOOD COUNT 3.34 10^6/ul (4.70-6.10); WHITE BLOOD COUNT 5.63 K/ul (4.2-10.2)
[2024-02-13 05:31] LABS: ALANINE AMINOTRANSFERASE 19.5 U/L (0-50); ALBUMIN 3.56 g/dL (3.5-5.0); ALKALINE PHOSPHATASE 68.8 U/L (56-119); ASPARTATE AMINO TRANSFERASE 31.2 U/L (17-59); BILIRUBIN,TOTAL 0.61 mg/dL (0.2-1.3); BLOOD UREA NITROGEN 29.5 mg/dL (9-20); CALCIUM 8.54 mg/dL (8.4-10.2); CARBON DIOXIDE 29.6 mmol/L (22-30.0); CHLORIDE 93.1 mmol/L (98-107); CREATININE 1.37 mg/dL (0.60-1.10); GLUCOSE 142.5 mg/dL (74-106); POTASSIUM 3.74 mmol/L (3.5-5.1); SODIUM 129.2 mmol/L (134.5-145); TOTAL PROTEIN 6.77 g/dL (6.3-8.2)
--- NOTE | 2024-02-13 11:39 | PCM.PROG ---
Date/Time Seen Date Seen by Provider: 02/13/24 Time Seen by Provider: 09:00 Provider Provider: Lex ESPINOZA, [facility] Chief Complaint Chief Complaint: CELLULITIS, PITTING EDEMA Subjective Subjective: PAtient resting in bed on exam. Patient reports improved swelling, improved erythema, improved comfort to BLE. Denies SOB at rest. Denies chest pain. No fever or chills. Eating and drinking well. Patient feels he is mobilizing better niw that swelling is improving. Objective Appearance: Positive Well-appearing, Well-nourished, No Apparent Distress and Alert and Oriented x3 Chest/Lungs: Positive Symmetrical With Equal Breath Sounds and Clear to Au scultation Bilaterally Heart: Positive RRR, Pulses Normal and Irregular Rhythm GI/: Positive Soft, Nontender, Bowel Sounds Normal, No Distention and No Organomegaly Musculoskeletal: Positive Normal Gait and Station (Gait not assessed.) Neurological: Positive Sensation Intact, Motor intact, Reflexes Intact, Cranial Nerves Intact, Alert, Oriented and Muscle Strength 5/5 in Upper and Lower Extremities Bilaterally Additional Findings: Small area of erythema to anterior aspect of lindo. No drainage or purulence. No swelling. blanchable Vital Signs Vital Signs: Vital Signs: Last 24 Hours 02/12/24 12:00 02/12/24 13:00 02/12/24 13:00 Temperature Temperature Source Pulse Rate Respiratory Rate Blood Pressure Blood Pressure Mean Blood Pressure Location Blood Pressure Position O2 Sat by Pulse Oximetry Oxygen Delivery Method Room Air Room Air Telemetry Type Remote Telemetry Telemetry Monitoring Continues Irregular Telemetry Rate (Approximate) 70-80 BPM Telemetry Heart Rate EKG KS Interval EKG QRS Interval 0.12 H Telemetry Strip Reading afib w/ bbb 02/12/24 14:00 02/12/24 14:00 02/12/24 15:00 Temperature 98.4 F Temperature Source Temporal Artery Scan Pulse Rate 70 Respiratory Rate 16 Blood Pressure 109/58 L Blood Pressure Mean 75 Blood Pressure Location Left Arm Blood Pressure Position Sitting O2 Sat by Pulse Oximetry 96 Oxygen Delivery Method Room Air Room Air Room Air Telemetry Type Telemetry Monitoring Irregular Telemetry Rate (Approximate) Telemetry Heart Rate EKG KS Interval EKG QRS Interval Telemetry Strip Reading 02/12/24 16:00 02/12/24 17:00 02/12/24 17:49 Temperature 98.7 F Temperature Source Temporal Artery Scan Pulse Rate 75 Respiratory Rate 16 Blood Pressure 131/77 Blood Pressure Mean 95 Blood Pressure Location Left Arm Blood Pressure Position Supine O2 Sat by Pulse Oximetry 98 Oxygen Delivery Method Room Air Room Air Room Air Telemetry Type Telemetry Monitoring Irregular Telemetry Rate (Approximate) Telemetry Heart Rate EKG KS Interval EKG QRS Interval Telemetry Strip Reading 02/12/24 18:00 02/12/24 19:00 02/12/24 19:00 Temperature Temperature Source Pulse Rate Respiratory Rate Blood Pressure Blood Pressure Mean Blood Pressure Location Blood Pressure Position O2 Sat by Pulse Oximetry Oxygen Delivery Method Room Air Room Air Telemetry Type Remote Telemetry Telemetry Monitoring Continues Irregular Telemetry Rate (Approximate) 70-80 BPM Telemetry Heart Rate EKG KS Interval EKG QRS Interval 0.12 H Telemetry Strip Reading AFIB W/ BBB 02/12/24 19:18 02/12/24 20:00 02/12/24 21:00 Temperature Temperature Source Pulse Rate Respiratory Rate Blood Pressure Blood Pressure Mean Blood Pressure Location Blood Pressure Position O2 Sat by Pulse Oximetry Oxygen Delivery Method Room Air Room Air Room Air Telemetry Type Telemetry Monitoring Irregular Telemetry Rate (Approximate) Telemetry Heart Rate EKG KS Interval EKG QRS Interval Telemetry Strip Reading 02/12/24 21:11 02/12/24 22:00 02/12/24 23:00 Temperature 98.1 F Temperature Source Temporal Artery Scan Pulse Rate 77 Respiratory Rate 18 Blood Pressure 147/83 H Blood Pressure Mean 104 Blood Pressure Location Left Arm Blood Pressure Position Supine O2 Sat by Pulse Oximetry 99 Oxygen Delivery Method Room Air Room Air Room Air Telemetry Type Telemetry Monitoring Irregular Telemetry Rate (Approximate) Telemetry Heart Rate EKG KS Interval EKG QRS Interval Telemetry Strip Reading 02/13/24 00:00 02/13/24 01:00 02/13/24 01:00 Temperature Temperature Source Pulse Rate Respiratory Rate Blood Pressure Blood Pressure Mean Blood Pressure Location Blood Pressure Position O2 Sat by Pulse Oximetry Oxygen Delivery Method Room Air Room Air Telemetry Type Remote Telemetry Telemetry Monitoring Continues Irregular Telemetry Rate (Approximate) Telemetry Heart Rate 64 EKG KS Interval 0.20 EKG QRS Interval 0.12 H Telemetry Strip Reading sr w/ bbb 02/13/24 02:00 02/13/24 03:00 02/13/24 04:00 Temperature Temperature Source Pulse Rate Respiratory Rate Blood Pressure Blood Pressure Mean Blood Pressure Location Blood Pressure Position O2 Sat by Pulse Oximetry Oxygen Delivery Method Room Air Room Air Room Air Telemetry Type Telemetry Monitoring Irregular Telemetry Rate (Approximate) Telemetry Heart Rate EKG KS Interval EKG QRS Interval Telemetry Strip Reading 02/13/24 05:00 02/13/24 05:07 02/13/24 05:42 Temperature 98.4 F Temperature Source Temporal Artery Scan Pulse Rate 90 Respiratory Rate 18 Blood Pressure 156/81 H Blood Pressure Mean 106 Blood Pressure Location Left Arm Blood Pressure Position Supine O2 Sat by Pulse Oximetry 98 Oxygen Delivery Method Room Air Room Air Room Air Telemetry Type Telemetry Monitoring Irregular Telemetry Rate (Approximate) Telemetry Heart Rate EKG KS Interval EKG QRS Interval Telemetry Strip Reading 02/13/24 07:00 02/13/24 07:57 02/13/24 09:00 Temperature Temperature Source Pulse Rate Respiratory Rate Blood Pressure Blood Pressure Mean Blood Pressure Location Blood Pressure Position O2 Sat by Pulse Oximetry Oxygen Delivery Method Room Air Room Air Room Air Telemetry Type Telemetry Monitoring Irregular Telemetry Rate (Approximate) Telemetry Heart Rate EKG KS Interval EKG QRS Interval Telemetry Strip Reading 02/13/24 10:00 Temperature Temperature Source Pulse Rate Respiratory Rate Blood Pressure Blood Pressure Mean Blood Pressure Location Blood Pressure Position O2 Sat by Pulse Oximetry Oxygen Delivery Method Room Air Telemetry Type Telemetry Monitoring Irregular Telemetry Rate (Approximate) Telemetry Heart Rate EKG KS Interval EKG QRS Interval Telemetry Strip Reading Lab Results Lab Results: Lab Results: Last 24 Hours 02/13/24 04:42 WBC 5.63 RBC 3.34 L Hgb 10.9 L Hct 32.1 L MCV 96.1 H MCH 32.6 H MCHC 34.0 RDW Coeff of Freedom 13.4 Plt Count 204 Immature Gran % (Auto) 1.2 Neut % (Auto) 53.3 Lymph % (Auto) 30.4 [place] % (Auto) 13.1 H Eos % (Auto) 1.6 Baso % (Auto) 0.4 Neut # (Auto) 3.0 Lymph # (Auto) 1.7 [place] # (Auto) 0.7 Eos # (Auto) 0.1 Baso # (Auto) 0.0 Immature Gran # (Auto) 0.1 Sodium 129.2 L Potassium 3.74 Chloride 93.1 L Carbon Dioxide 29.6 Anion Gap 10.24 BUN 29.5 H Creatinine 1.37 H Estimated GFR (MDRD) 49.00 BUN/Creatinine Ratio 21.53 Glucose 142.5 H Calcium 8.54 Total Bilirubin 0.61 AST 31.2 ALT 19.5 Alkaline Phosphatase 68.8 Total Protein 6.77 Albumin 3.56 Globulin 3.21 Albumin/Globulin Ratio 1.10 Additional Comments Additional Comments: I have independently reviewed and interpreted the labs/EKGs/imaging ordered during this hospital stay. I have reviewed outside records that are available in our EMR that pertain to medical stay including imaging/notes/labs from previous visits. Active Medications Active Medications: Medications Generic Name Dose Route Start Last Admin Trade Name Freq PRN Reason Stop Dose Admin Acetaminophen 650 mg 02/11/24 18:15 02/11/24 23:47 Acetaminophen 325 Mg Tablet PO 650 mg Q4H PRN Administration Mild Pain Atorvastatin Calcium 80 mg 02/12/24 09:00 02/13/24 08:48 Atorvastatin Calcium 20 Mg Tablet PO 80 mg DAILY NARENDRA Administration Enalapril Maleate 30 mg 02/12/24 09:00 02/13/24 08:47 Enalapril Maleate 20 Mg Tablet PO 30 mg DAILY NARENDRA Administration Enoxaparin Sodium 70 mg 02/12/24 10:45 02/13/24 08:51 Enoxaparin Sodium 100 Mg/Ml Syr SUBCUT 70 mg Q12HR NARENDRA Administration Finasteride 5 mg 02/12/24 09:00 02/13/24 08:47 Finasteride 5 Mg Tablet PO 5 mg DAILY NARENDRA Administration Furosemide 20 mg 02/12/24 02:00 02/13/24 05:53 Furosemide Inj 20 Mg/2 Ml Vial IVP 20 mg Q8HR NARENDRA Administration VANCOMYCIN/WATER FOR INJ (PEG) 1 gm in 200 mls @ 200 mls/hr 02/12/24 09:00 02/13/24 08:48 Vancomycin 1 Gram/200 Ml Premix IV 02/15/24 08:59 200 mls/hr DAILY NARENDRA Administration Omeprazole 20 mg 02/12/24 09:00 02/13/24 05:32 Omeprazole 20 Mg Capsule.Dr PO 20 mg QDAC2 NARENDRA Administration Ondansetron HCl 4 mg 02/11/24 18:15 Ondansetron Hcl/Pf 4 Mg/2 Ml Sdv IVP Q6H PRN Nausea / Vomiting Sodium Chloride 1 gm 02/12/24 09:00 02/13/24 08:47 Sodium Chloride 1 Gm Tablet PO 1 gm QID NARENDRA Administration Sodium Chloride 1 syr 02/13/24 10:00 02/13/24 10:12 0.9% Sodium Chloride 10 Ml Disp.Syrin IVF 1 syr Q8H NARENDRA Administration Tamsulosin HCl 0.4 mg 02/11/24 21:30 02/13/24 08:47 Tamsulosin Hcl 0.4 Mg Cap.Er.24h PO 0.4 mg BID NARENDRA Administration Plan Plan: Cellulitis of left lower extremity: -Initially Complicated by peripheral edema, but improving now that swelling has improved. -Blood culture positive for gram positive rods, likely contaminant -Repeat blood cultures pending -Vancomycin pharmacy to dose dependent edema to BLE: - Initial BNP mildly elevated likely in setting of a-fib. -Echocardiogram ordered -decreased Lasix 20 mg iv bid. Atrial fibrillation, new onset: -CHADVASC of 3. Family and patient agreeable to start anticoagulation initially -Will transition to eliquis 5mg po bid today. -Currently rate controlled. Hyperlipidemia: -Continue home medication regimen. Essential Hypertension: -Continue home medication regimen. BPH: -Continue home medication regimen. Hyponatremia, acute on chronic: -Improved to 129 today -Will continue to trend daily. -Hold HCTZ. -Fluid restriction. DVT Prophylaxis: Lovenox Time Spent: Greater than 50 minutes spent with patient, 50% of the time spent with this patient was devoted to counseling and coordination of care. Advanced Care Plannin minutes spent discussing advance care planning. Discussed Plan of Care with Dr. Bonita Cobian. Disposition: Family concerned for ambulation and ADLs. Maybe need additional therapy prior to returning home. Review Statement Review Statement: I have personally discussed and reviewed the patient's visit/currently labs/imaging/decision making with Dr. Cobian, my supervising attending. Greater that 50 minutes spent with patient, 50% of the time spent with this patient was devoted to counseling and coordination of care.
[2024-02-13] MEDS: LASIX IVP SCH (20:34)
[2024-02-14 05:15] LABS: BASOPHILS % (AUTO) 0.5 % (0.0-3.0); EOSINOPHILS # (AUTO) 0.1 K/ul (0.0-0.7); EOSINOPHILS % (AUTO) 1.2 % (0.0-7.0); HEMATOCRIT 31.6 % (42.0-52.0); HEMOGLOBIN 10.8 g/dl (14.0-18.0); IMMATURE GRANULOCYTE # (AUTO) 0.1 (0.0-1.0); IMMATURE GRANULOCYTE % (AUTO) 0.8 % (0.0-5.0); LYMPHOCYTES # (AUTO) 1.5 K/uL (0.60-3.4); LYMPHOCYTES % (AUTO) 23.1 (10.0-50.0); MEAN CORPUSCULAR HEMOGLOBIN 32.9 pg (27.0-31.0); MEAN CORPUSCULAR HGB CONC 34.2 (31.8-35.4); MEAN CORPUSCULAR VOLUME 96.3 fl (80.0-94.0); MONOCYTES # (AUTO) 0.9 K/uL (0.4-2.0); MONOCYTES % (AUTO) 13.4 (0-10); NEUTROPHILS # (AUTO) 3.9 K/ul (2.0-6.9); PLATELET COUNT 206 10^3/uL (140-440); RDW COEFFICIENT OF VARIATION 13.6 % (11.6-14.8); RED BLOOD COUNT 3.28 10^6/ul (4.70-6.10); WHITE BLOOD COUNT 6.42 K/ul (4.2-10.2)
[2024-02-14 05:29] LABS: ALANINE AMINOTRANSFERASE 19.1 U/L (0-50); ALBUMIN 3.46 g/dL (3.5-5.0); ALKALINE PHOSPHATASE 72.3 U/L (56-119); ASPARTATE AMINO TRANSFERASE 33.6 U/L (17-59); BILIRUBIN,TOTAL 0.6 mg/dL (0.2-1.3); BLOOD UREA NITROGEN 24.1 mg/dL (9-20); CALCIUM 8.35 mg/dL (8.4-10.2); CHLORIDE 92.8 mmol/L (98-107); CREATININE 1.3 mg/dL (0.60-1.10); GLUCOSE 126.7 mg/dL (74-106); MAGNESIUM 1.53 mg/dL (1.6-2.3); POTASSIUM 3.48 mmol/L (3.5-5.1); SODIUM 128.8 mmol/L (134.5-145); TOTAL PROTEIN 6.63 g/dL (6.3-8.2)
[2024-02-14] MEDS: K-DUR PO ONE (08:39)
[2024-02-14] MEDS: MAGNESIUM SULFATE 1 GM/100 ML D5W 1 GM/100 ML BAG IV ONE (09:52)
--- NOTE | 2024-02-14 10:40 | PCM.PROG ---
Date/Time Seen Date Seen by Provider: 02/14/24 Time Seen by Provider: 08:45 Provider [facility]I [facility] Chief Complaint Chief Complaint: CELLULITIS, PITTING EDEMA Subjective Subjective: States he feels the swelling in his legs is much better and cellulitis to LLE. No fever or events overnight. Objective Appearance: Positive No Apparent Distress Chest/Lungs: Positive Symmetrical With Equal Breath Sounds, Clear to Auscultation Bilaterally and Good Air Movement all 4 Lung Sin Heart: Positive RRR and Pulses Normal GI/: Positive Soft, Nontender, Bowel Sounds Normal and No Distention Musculoskeletal: Positive Not Examined Neurological: Positive Sensation Intact, Motor intact, Alert, Disorinted (intermittent) and Other (generalized weakness) Additional Findings: +1-2 edema BLE Cellulitis to LLE, 2x2cm area Vital Signs Vital Signs: Vital Signs: Last 24 Hours 02/13/24 11:00 02/13/24 12:00 02/13/24 13:00 Temperature Temperature Source Pulse Rate Respiratory Rate Blood Pressure Blood Pressure Mean Blood Pressure Location Blood Pressure Position O2 Sat by Pulse Oximetry Oxygen Delivery Method Room Air Room Air Room Air Telemetry Type Telemetry Monitoring Irregular Telemetry Rate (Approximate) Telemetry Heart Rate EKG QRS Interval Telemetry Strip Reading 02/13/24 14:00 02/13/24 14:00 02/13/24 15:00 Temperature 98.6 F Temperature Source Temporal Artery Scan Pulse Rate 78 Respiratory Rate 17 Blood Pressure 118/71 Blood Pressure Mean 86 Blood Pressure Location Left Arm Blood Pressure Position Supine O2 Sat by Pulse Oximetry 99 Oxygen Delivery Method Room Air Room Air Room Air Telemetry Type Telemetry Monitoring Irregular Telemetry Rate (Approximate) Telemetry Heart Rate EKG QRS Interval Telemetry Strip Reading 02/13/24 15:39 02/13/24 17:00 02/13/24 18:00 Temperature Temperature Source Pulse Rate Respiratory Rate Blood Pressure Blood Pressure Mean Blood Pressure Location Blood Pressure Position O2 Sat by Pulse Oximetry Oxygen Delivery Method Room Air Room Air Room Air Telemetry Type Telemetry Monitoring Irregular Telemetry Rate (Approximate) Telemetry Heart Rate EKG QRS Interval Telemetry Strip Reading 02/13/24 19:00 02/13/24 19:00 02/13/24 19:59 Temperature Temperature Source Pulse Rate Respiratory Rate Blood Pressure Blood Pressure Mean Blood Pressure Location Blood Pressure Position O2 Sat by Pulse Oximetry Oxygen Delivery Method Room Air Room Air Telemetry Type Remote Telemetry Telemetry Monitoring Continues Irregular Telemetry Rate (Approximate) 70-80 BPM Telemetry Heart Rate EKG QRS Interval 0.12 H Telemetry Strip Reading afib w/ bbb 02/13/24 19:59 02/13/24 21:00 02/13/24 21:17 Temperature 97.7 F Temperature Source Temporal Artery Scan Pulse Rate 85 Respiratory Rate 16 Blood Pressure 149/78 H Blood Pressure Mean 101 Blood Pressure Location Left Arm Blood Pressure Position Supine O2 Sat by Pulse Oximetry 97 Oxygen Delivery Method Room Air Room Air Room Air Telemetry Type Telemetry Monitoring Irregular Telemetry Rate (Approximate) Telemetry Heart Rate EKG QRS Interval Telemetry Strip Reading 02/13/24 22:00 02/13/24 23:00 02/14/24 00:00 Temperature Temperature Source Pulse Rate Respiratory Rate Blood Pressure Blood Pressure Mean Blood Pressure Location Blood Pressure Position O2 Sat by Pulse Oximetry Oxygen Delivery Method Room Air Room Air Room Air Telemetry Type Telemetry Monitoring Irregular Telemetry Rate (Approximate) Telemetry Heart Rate EKG QRS Interval Telemetry Strip Reading 02/14/24 01:00 02/14/24 01:00 02/14/24 02:00 Temperature Temperature Source Pulse Rate Respiratory Rate Blood Pressure Blood Pressure Mean Blood Pressure Location Blood Pressure Position O2 Sat by Pulse Oximetry Oxygen Delivery Method Room Air Room Air Telemetry Type Remote Telemetry Telemetry Monitoring Continues Irregular Telemetry Rate (Approximate) 90-100 BPM Telemetry Heart Rate EKG QRS Interval 0.12 H Telemetry Strip Reading afib w/ bbb 02/14/24 05:09 02/14/24 07:00 Temperature 97.5 F L Temperature Source Temporal Artery Scan Pulse Rate 75 Respiratory Rate 16 Blood Pressure 153/78 H Blood Pressure Mean 103 Blood Pressure Location Left Arm Blood Pressure Position Supine O2 Sat by Pulse Oximetry 98 Oxygen Delivery Method Room Air Telemetry Type Remote Telemetry Telemetry Monitoring Continues Irregular Telemetry Rate (Approximate) 90-100 BPM Telemetry Heart Rate 90 EKG QRS Interval 0.12 H Telemetry Strip Reading Afib w/ BBB Lab Results Lab Results: Lab Results: Last 24 Hours 02/14/24 02/14/24 08:43 05:04 WBC 6.42 RBC 3.28 L Hgb 10.8 L Hct 31.6 L MCV 96.3 H MCH 32.9 H MCHC 34.2 RDW Coeff of Freedom 13.6 Plt Count 206 Immature Gran % (Auto) 0.8 Neut % (Auto) 61.0 Lymph % (Auto) 23.1 [place] % (Auto) 13.4 H Eos % (Auto) 1.2 Baso % (Auto) 0.5 Neut # (Auto) 3.9 Lymph # (Auto) 1.5 [place] # (Auto) 0.9 Eos # (Auto) 0.1 Baso # (Auto) 0.0 Immature Gran # (Auto) 0.1 Sodium 128.8 L Potassium 3.48 L Chloride 92.8 L Carbon Dioxide 29.0 Anion Gap 10.48 BUN 24.1 H Creatinine 1.30 H Estimated GFR (MDRD) 52.00 BUN/Creatinine Ratio 18.53 Glucose 126.7 H Calcium 8.35 L Magnesium 1.53 L Total Bilirubin 0.60 AST 33.6 ALT 19.1 Alkaline Phosphatase 72.3 Total Protein 6.63 Albumin 3.46 L Globulin 3.17 Albumin/Globulin Ratio 1.09 Vancomycin Trough 21.624 H* Additional Comments Additional Comments: I have independently reviewed and interpreted the labs/EKGs/imaging ordered during this hospital stay. I have reviewed outside records that are available in our EMR that pertain to medical stay including imaging/notes/labs from previous visits. Active Medications Active Medications: Medications Generic Name Dose Route Start Last Admin Trade Name Freq PRN Reason Stop Dose Admin Acetaminophen 650 mg 02/11/24 18:15 02/14/24 08:39 Acetaminophen 325 Mg Tablet PO 650 mg Q4H PRN Administration Mild Pain Apixaban 5 mg 02/14/24 21:00 Apixaban 5 Mg Tab PO BID NARENDRA Atorvastatin Calcium 80 mg 02/12/24 09:00 02/14/24 08:23 Atorvastatin Calcium 20 Mg Tablet PO 80 mg DAILY NARENDRA Administration Enalapril Maleate 30 mg 02/12/24 09:00 02/14/24 08:24 Enalapril Maleate 20 Mg Tablet PO 30 mg DAILY NARENDRA Administration Finasteride 5 mg 02/12/24 09:00 02/14/24 08:23 Finasteride 5 Mg Tablet PO 5 mg DAILY NARENDRA Administration Furosemide 20 mg 02/13/24 21:00 02/14/24 08:22 Furosemide Inj 20 Mg/2 Ml Vial IVP 20 mg Q12HR NARENDRA Administration Omeprazole 20 mg 02/12/24 09:00 02/14/24 05:09 Omeprazole 20 Mg Capsule. PO 20 mg QDAC2 NARENDRA Administration Ondansetron HCl 4 mg 02/11/24 18:15 Ondansetron Hcl/Pf 4 Mg/2 Ml Sdv IVP Q6H PRN Nausea / Vomiting Sodium Chloride 1 gm 02/12/24 09:00 02/14/24 08:22 Sodium Chloride 1 Gm Tablet PO 1 gm QID NARENDRA Administration Sodium Chloride 1 syr 02/13/24 10:00 02/14/24 10:07 0.9% Sodium Chloride 10 Ml Disp.Syrin IVF 1 syr Q8H NARENDRA Administration Tamsulosin HCl 0.4 mg 02/11/24 21:30 02/14/24 08:23 Tamsulosin Hcl 0.4 Mg Cap.Er.24h PO 0.4 mg BID NARENDRA Administration Plan Plan: 1. Sepsis R/o - 1 blood culture positive for gram positive rods, likely contaminant. Repeat cultures negative x 24 hours. Vancomycin stopped 2. Cellulitis to LLE - improving, vancomycin stopped due to above, will transition to oral keflex 3. CHF Exacerbation - BNP mildly elevated on admission, lasix initially 40 mg Q8H, transitioned to BID yesterday. Will continue today - likely transition to PO tomorrow. Unable to d/c home with lasix due fragility to sodium and kidney function. Family aware. Echo today. 4. Atrial Fibrillation, new onset - CHADVASC 3, Family agreeable to anticoagulation. Lovenox stopped today. Eliquis 5mg BID, currenty rate controlled 5. Acute on Chronic, Hyponatremia - Improving, holding HCTZ, fluid restriction 6. Hypertension - chronic, continue home medications 7. Hyperlipidemia - chronic, continue home medications DVT Prophylaxis: Eliquis Review Statement Review Statement: I have personally discussed and reviewed the patient's visit/currently labs/imaging/decision making with Dr. Cobian, my supervising attending. Greater that 50 minutes spent with patient, 50% of the time spent with this patient was devoted to counseling and coordination of care.
--- NOTE | 2024-02-14 13:54 | RS.PTINEVL ---
Subjective Patient information Date of Evaluation: 02/14/24 Date of Arrival on Unit: 02/11/24 Admitted From:: Home Diagnosis: cellulitis LLE, AFib Usual Living Arrangement: Alone Living Arrangement Comments: son lives in a garage apt at pt's house, daughters are also supportive Home Environment: House, Stairs (many) and No rail Medical History: Hypertension, COPD and Arthritis Medical History Comments:: anemia, GERD, CKD, edema, CAD LATEX ALLERGY?: No Surgical History: Knee Replacement (bilateral) Surgical History Comments:: hernia repair Medications: see chart Subjective Information/ Patient Comments:: pt states that his son helps him with things at home. pt reports that he has been sitting up in chair this afternoon. Level of function Prior to this admission, the patient could do the following:: Independent Ambulation (with rwx) and Participated in Social Activities Outside home Abilities prior to this admission: son assisted with shower, cooking. States he could dress himself Current Level of Function: Partially Dependent Current Equipment Used at Home: rolling walker, shower chair, cane Interventions Objective Patient Orientation: Person, Place and Time Current Interventions: IV's and Telemetry Observation: pt with erythema, edema LLE, with small open area L ant lindo. Range of Motion ROM Right Upper Extremity AROM: WFL's Left Upper Extremity AROM: WFL's Right Lower Extremity AROM: WFL's Left Lower Extremity AROM: WFL's Muscle Strength Muscle Strength Right Upper Extremity: Mild Weakness (BUE grossly 4-/5) Left Upper Extremity: Mild Weakness (BUE grossly 4-/5) Right Lower Extremity: Mild Weakness (hip flex 4-/5, knee flex/ext 4/5, ankle DF/PF 4/5) Left Lower Extremity: Mild Weakness (hip flex 4-/5, knee flex/ext 4-/5, ankle DF/PF 4/5 ) Sensation Sensation Right Upper Extremity: Intact/Normal Left Upper Extremity: Intact/Normal Right Lower Extremity: Intact/Normal Left Lower Extremity: Intact/Normal Palpation Palpation Findings: Tenderness (LLE) Balance Sitting Balance and Reactions Static Sitting Balance: Fair Dynamic Sitting Balance: Fair (fair-) Standing Balance and Reactions Static Standing Balance: Poor Dynamic Standing Balance: Poor Standing Equilibrium Reactions: Delayed Left and Delayed Right Standing Protective Reactions: Delayed Left and Delayed Right Functional Mobility Bed Mobility Comments:: pt seen sitting up in chair and did not wish to go back to bed. Transfers Sit to Stand: Min Assist, Mod Assist and 1 person assist Stand to Sit: Min Assist and 1 person assist Stand Pivot Transfers: Min Assist and 1 person assist Safety Awareness Safety Awareness: Poor MIRNA INDEX SCORE: n/a Ambulation Ambulation Assistive Device Used: Rolling Walker Orthotic/Prosthetic Device: No Distance: 80ft Assistance needed with Ambulation: CGA, Min Assist and 1 person assist Gait Deviations: Narrow Based gait, Shuffling gait and Forward posture Ambulation Comments: requires assist with guiding Rwx Factors Affecting Ambulation: Decreased Balance, Weakness, Decreased Coordination, Decreased Safety and Limited Endurance Treatment time Units charged Gait trainin Time with patient Length of Evaluation: 19 Total treatment time: 28 Patient Education Education Patient Education: Activity Modification and Education of Plan of Care Teaching Recipient: Patient Teaching Methods: Discussion (discussion regarding POC and home safety) Assessment Assessment Problem List:: Decreased level of function, Requires training/education, Decreased safety/Risk of falls, Weakness and Cognitive status limits abilities Rehab Potential: Good Further Therapy Indicated?: Yes Candidate for Swing Bed for Therapy Services?: Feel pt may not be a candidate for swing bed due to pt's family is planning for LTC. Evaluation Complexity: HISTORY: Medium, EXAM OF BODY SYSTEMS: Medium, CLINICAL PRESENTATION: Medium and CLINICAL DECISION MAKING: Medium Patient's Goal(s): Get my legs stronger Short Term Goals GOAL #1: pt demonstrate rolling and scooting in bed min x 1 Goal to be met by: 02/16/24 GOAL #2: Transfer sup to/from sit min x 1 Goal to be met by: 02/16/24 GOAL #3: Transfer sit to/from stand min x 1 Goal to be met by: 02/16/24 GOAL #4: pt amb with rwx 100ft with CGA x 1 Goal to be met by: 02/16/24 GOAL #5: Improve BLE strength 4/5 Goal to be met by: 02/16/24 GOAL #6: . [facility] Goals GOAL #1: pt transfer sup to/from sit to/from stand CGA Goal to be met by: 02/18/24 GOAL #2: pt amb functional household distances with rwx CGA to SBA Goal to be met by: 02/18/24 GOAL #3: pt in standing reach across and away from midline without LOB Goal to be met by: 02/18/24 Plan Plan of Care: Therapeutic EX, Neuromuscular Re-Educ and Therapeutic Activity Other:: gait training Frequency of Treatment: 1-2 X day, as tolerated Duration of Treatment: 5 days Anticipated Discharge Destination: [facility] Facility Treatment Diagnosis (ICD 10 Codes): difficulty walking R26.2 impaired balance R 26.81 weakness M62.81 Has the Physician been added for Co-signature?: Yes
--- NOTE | 2024-02-14 14:38 | RS.OTINEVL ---
Subjective Patient information Date of Evaluation: 02/14/24 Date of Arrival on Unit: 02/11/24 Admitted From:: Home Diagnosis: Cellulitis, pitting edema, skin breakdown. PRECAUTIONS: fall risk, Sores on leg. Usual Living Arrangement: Alone Living Arrangement Comments: son lives in a garage apt at pt's house, daughters are also supportive Home Environment: House, Stairs (many) and No rail Medical History: Hypertension, COPD and Arthritis Medical History Comments:: anemia, GERD, CKD, edema, CAD, Afib/BBB LATEX ALLERGY?: No Surgical History: Knee Replacement (bilateral) Surgical History Comments:: hernia repair Medications: see chart Subjective Information/ Patient Comments:: " It's been a while since I have been here." "I am here because of my legs." Level of function Prior to this admission, the patient could do the following:: Independent Ambulation (with rwx) and Participated in Social Activities Outside home Abilities prior to this admission: Pt requires assistance with showering. Pt is able to dress himself. Current Level of Function: Partially Dependent Current Equipment Used at Home: rolling walker, shower chair, cane Pain Assessment Pain Pain Score: 0 Interventions Objective Patient Orientation: Person and Place Current Interventions: IV's and Telemetry Observation: Pt has scabs on his head, face, legs, arms where he picks. Pt Min A for sit to stand from recliner. Interventions ROM Right Upper Extremity AROM: Slight limitation Left Upper Extremity AROM: Slight limitation Strength Right Upper Extremity: Mild Weakness Left Upper Extremity: Mild Weakness Sensation Right Upper Extremity: Intact/Normal Left Upper Extremity: Intact/Normal Balance Sitting Balance Static Sitting Balance: Normal Dynamic Sitting Balance: Normal Standing Balance Static Standing Balance: Poor Dynamic Standing Balance: Poor Comments Balance Assessment Comments: Pt leans back of legs against the chair to hold himself up. ADL Skills Self Feeding Self Feeding: Set Up Only Grooming Grooming: Min Assist and Verbal Cues Bathing Bathing UE: Min Assist Bathing LE: Min Assist Bathing Set-up: Shower Dressing Dressing UE: Supervision Dressing LE: CGA Toilet Management Toilet Hygiene: [facility] Toilet Clothing Management: [facility] Functional Mobility Transfers Sit to Stand: Min Assist Stand to Sit: CGA Stand Pivot Transfers: Min Assist and 1 person assist Ambulation Assistive Device Used: Rolling Walker Assistance needed with Ambulation: Min Assist Safety Awareness Safety Awareness: Fair MIRNA INDEX SCORE: . Additional Treatment Performed Time with patient Length of Evaluation: 18 Total treatment time: 19 Activities Do you enjoy playing games?: Yes Would you be interested in leaving your room for activities?: Yes Would you enjoy group activities?: Yes Do you have difficulty with your vision?: No Patient Interests:: Watching Television and Visiting/Socializing Patient Education Patient Education: Education of diagnosis, Body/Joint mechanics, Home Exercise Program, Home Safety and Education of Plan of Care Teaching Recipient: Patient Teaching Methods: Discussion and Demonstration Assessment Problem List:: Decreased level of function, Requires training/education, Decreased safety/Risk of falls, Weakness and Pain limits previous level of function Evaluation Complexity: HISTORY: Medium, EXAM OF BODY SYSTEMS: Medium and CLINICAL DECISION MAKING: Medium Patient's Goal(s): To get his legs well and return home. Short Term Goals Goals GOAL 1: Pt will be SUP with dressing. Goal to be met by: 02/16/24 GOAL 2: Pt will be (SUP) with functional mobility. Goal to be met by: 02/17/24 GOAL 3: Pt will have increase dyn. std. bal. to F+. Goal to be met by: 02/17/24 GOAL 4: Pt to increase BUE strength to 4/5. Goal to be met by: 02/17/24 GOAL 5: Pt to be SUP with toilet transfer. Goal to be met by: 02/17/24 Benefits Manager Goals GOAL 1: Pt to be (I) with dressing. Goal to be met by: 02/18/24 GOAL 2: Pt will be (I) with functional mobility. Goal to be met by: 02/18/24 GOAL 3: Pt dyn. std. bal. to increase to G-. Goal to be met by: 10/25/23 Plan Plan of Care: Therapeutic EX, Neuromuscular Re-Educ, Therapeutic Activity and Self-Care/Home Management Frequency of Treatment: 1-2 X day, as tolerated Duration of Treatment: 1 Week Anticipated Discharge Destination: Home Treatment Diagnosis (ICD 10 Codes): Z74.1 Need for assistance with personal care, R26.81 Unsteady Has the Physician been added for Co-signature?: Yes
[2024-02-14] MEDS: COLACE PO SCH (21:01)
[2024-02-14] MEDS: ELIQUIS PO SCH (21:02)
[2024-02-15 05:21] VITALS: BP 157/83; TEMP 97.9
[2024-02-15 05:32] LABS: BASOPHILS % (AUTO) 0.2 % (0.0-3.0); EOSINOPHILS # (AUTO) 0.2 K/ul (0.0-0.7); EOSINOPHILS % (AUTO) 3.2 % (0.0-7.0); HEMATOCRIT 29.4 % (42.0-52.0); HEMOGLOBIN 9.9 g/dl (14.0-18.0); IMMATURE GRANULOCYTE # (AUTO) 0.1 (0.0-1.0); IMMATURE GRANULOCYTE % (AUTO) 1.4 % (0.0-5.0); LYMPHOCYTES # (AUTO) 1.4 K/uL (0.60-3.4); MEAN CORPUSCULAR HEMOGLOBIN 32.7 pg (27.0-31.0); MEAN CORPUSCULAR HGB CONC 33.7 (31.8-35.4); MONOCYTES # (AUTO) 0.8 K/uL (0.4-2.0); MONOCYTES % (AUTO) 16.3 (0-10); NEUTROPHILS # (AUTO) 2.5 K/ul (2.0-6.9); NEUTROPHILS % (AUTO) 49.9 % (42.2-75.2); PLATELET COUNT 190 10^3/uL (140-440); RDW COEFFICIENT OF VARIATION 13.7 % (11.6-14.8); RED BLOOD COUNT 3.03 10^6/ul (4.70-6.10); WHITE BLOOD COUNT 4.96 K/ul (4.2-10.2)
[2024-02-15 05:44] LABS: ALANINE AMINOTRANSFERASE 19.5 U/L (0-50); ALBUMIN 3.17 g/dL (3.5-5.0); ALKALINE PHOSPHATASE 70.9 U/L (56-119); ASPARTATE AMINO TRANSFERASE 38.2 U/L (17-59); BILIRUBIN,TOTAL 0.47 mg/dL (0.2-1.3); BLOOD UREA NITROGEN 25.7 mg/dL (9-20); CALCIUM 8.26 mg/dL (8.4-10.2); CARBON DIOXIDE 29.9 mmol/L (22-30.0); CHLORIDE 96.5 mmol/L (98-107); CREATININE 1.4 mg/dL (0.60-1.10); GLUCOSE 116.4 mg/dL (74-106); MAGNESIUM 1.81 mg/dL (1.6-2.3); POTASSIUM 4.06 mmol/L (3.5-5.1); SODIUM 129.4 mmol/L (134.5-145); TOTAL PROTEIN 6.34 g/dL (6.3-8.2)
--- NOTE | 2024-02-15 09:03 | DCSUM ---
Admission Date Admission Date: 02/11/24 Discharge Date Discharge Date: 02/15/24 Admission Diagnosis Admission Diagnosis: 1. Cellulitis of left lower extremity 2. Worsening dependent edema 3. A fib, new onset 4. Hyperlipidemia 5. Hypertension 6. BPH 7. Hyponatremia, acute on chronic Discharge Diagnosis Discharge Diagnosis: 1. Sepsis - Ruled out 2. Cellulitis to LLE - Improving 3. CHF Exacerbation - Resolved 4. Atrial Fibrillation, new onset - Stable 5. Acute on Chronic, Hyponatremia - Resolved 6. Hypertension - Chronic, stable 7. Hyperlipidemia - Chronic, stable Hospital Provider Hospital Provider[place] [facility] [place] Primary Care Physician: YADIRA MILLIGAN MD Summary of History and Physical Summary of History and Physical: Patient is an 88 year old male from home with pmhx of CKD, dependent edema, BPH, anemia, GERD, COPD, hypertension, hyperlipidemia who presents for worsening lower ext edema and redness of LLE. Patient states for the past week he's had blisters on his left leg that opened up and then it started getting red. States his swelling has been worsening over the last month or two. He denies hx of CHF. Doesn't think he's had an echo in the past year. He denies chest pain or SOB. In ER he was found to have cellulitis, mildly elevated BNP. He was given vanc. Adm itted to med surg. Blood cultures have came back positive for gram positive rods overnight. Pt noted to be in a fib on tele, confirmed with EKG this morning. No hx of a fib per patient or daughter. CHADVASC score 3. Discussed anticoagulation. Pt lives at home with his son. His two daughters are nurses. Strong family support. Hospital Course Subjective: During stay, patient was treated for cellulitis with vancomycin. 1 blood culture bottle was found to be gram positive rods. Likely due to contamination. Repeat cultures were obtained and negative x 48 hours. Vancomycin was stopped. Patient transitioned to PO Keflex for cellulitis. Also treated for CHF exacerbation with lasix 40 Q8H, transitioned to BID, and then stopped today. Diuresed well. Patient elderly and suffers from chronic hyponatremia. Discussed with family difficult to place on lasix and agreed. Will continue HCTZ prn for edema. Echo completed and EF in 40% range. Unchanged from previous per Dr. Patrick Milligan. Patient was found to be in a fib on tele and confirmed on EKG. No previous history. Anticoagulation was discussed and started on eliquis 5 mg bid. Patient was mildly hyponatremic on admission. HCTZ held. Continue home salt tabs. Fluids were restricted. Sodium now at baseline level. No changes made to previous home medications. Family concerned with patient safety at home. D/c to [facility] today. Appearance: Pleasant, No Apparent Distress and Alert HEENT: MMM, Supple and No JVD CVS: No Murmur and No Rubs Abdomen: Soft, Non-Tender and No Distention Respiratory: No Dyspnea Extremities: No Calf Tenderness Additional Findings: +1 pitting edema BLE, 1x1cm erythema to LLE Vital Signs: Most Recent Vital Signs Temperature 97.9 F 02/15/24 05:20 Temperature Source Temporal Artery Scan 02/15/24 05:20 Temperature Source Oral 02/11/24 16:18 Pulse Rate 84 02/15/24 05:20 Respiratory Rate 18 02/15/24 05:20 Blood Pressure 157/83 H 02/15/24 05:20 Blood Pressure Mean 107 02/15/24 05:20 Blood Pressure Left Arm 156/84 02/11/24 19:21 Blood Pressure Location Right Arm 02/15/24 05:20 Blood Pressure Position Supine 02/15/24 05:20 O2 Sat by Pulse Oximetry 97 02/15/24 05:20 Oxygen Delivery Method Room Air 02/15/24 05:20 Height 5 ft 7 in 02/11/24 19:21 Weight 149 lb 3.2 oz 02/11/24 19:21 Telemetry Type Remote Telemetry 02/15/24 07:00 Telemetry Monitoring Continues 02/15/24 07:00 Irregular Telemetry Rate (Approximate) 70-80 BPM 02/15/24 01:00 Telemetry Heart Rate 54 L 02/15/24 07:00 EKG [place] Interval 0.20 02/15/24 07:00 EKG QRS Interval 0.06 02/15/24 07:00 Telemetry Strip Reading Sinus Arrhythmia at Raf Rate 02/15/24 07:00 Lab Results Last 24 Hours: 02/15/24 02/14/24 05:06 08:43 WBC 4.96 RBC 3.03 L Hgb 9.9 L Hct 29.4 L MCV 97.0 H MCH 32.7 H MCHC 33.7 RDW Coeff of Freedom 13.7 Plt Count 190 Immature Gran % (Auto) 1.4 Neut % (Auto) 49.9 Lymph % (Auto) 29.0 [place] % (Auto) 16.3 H Eos % (Auto) 3.2 Baso % (Auto) 0.2 Neut # (Auto) 2.5 Lymph # (Auto) 1.4 [place] # (Auto) 0.8 Eos # (Auto) 0.2 Baso # (Auto) 0.0 Immature Gran # (Auto) 0.1 Sodium 129.4 L Potassium 4.06 Chloride 96.5 L Carbon Dioxide 29.9 Anion Gap 7.06 BUN 25.7 H Creatinine 1.40 H Estimated GFR (MDRD) 48.00 BUN/Creatinine Ratio 18.35 Glucose 116.4 H Calcium 8.26 L Magnesium 1.81 Total Bilirubin 0.47 AST 38.2 ALT 19.5 Alkaline Phosphatase 70.9 Total Protein 6.34 Albumin 3.17 L Globulin 3.17 Albumin/Globulin Ratio 1.00 Vancomycin Trough 21.624 H* Discharge Instructions Discharge Planning: Discharge Planning > 40 minutes If patient is discharged with left ventricular systolic dysfunction: NA Discharged with a beta bernarda? [] If no, why not? [] Discharged with an reema/arb? [] If no, why not? [] Diagnosis: CHF Exacerbation, Cellulitis Diet: Regular, 2L fluid restriction Activity: as tolerated, PT/OT Follow-up with PCP this week Medications: Eliquis 5 mg bid, Keflex TID x 4 days Discharge Medications: Medications at Discharge (Home Meds & RX) tamsulosin 0.4 mg capsule 0.4 mg PO BID #180 caps 05/12/23 sodium chloride 1,000 mg soluble tablet 1,000 mg PO QID #120 tabs 10/25/23 omeprazole 20 mg capsule,delayed release 20 mg PO DAILY #90 caps 12/27/23 enalapril maleate 20 mg tablet 30 mg (1.5 x 20 mg) PO DAILY #135 tabs 01/03/24 finasteride 5 mg tablet 5 mg PO DAILY #90 tabs 01/03/24 hydrochlorothiazide 25 mg tablet 25 mg PO QAM PRN swelling #90 tabs 01/03/24 atorvastatin 80 mg tablet See Rx Instructions .Route .COMPLEX #90 tabs 02/07/24 Discharge Plan Discharge Discharge Orders: Discharge Patient (ONCE); Ordered 02/15/24 Ordered By: BEATRICE PHILIP Activity Restrictions/Additional Instructions: Diagnosis: CHF Exacerbation, Cellulitis Diet: Regular, 2L fluid restriction Activity: as tolerated, PT/OT Follow-up with PCP this week Medications: Eliquis 5 mg bid, Keflex TID x 4 days Instructions: Heart Failure (GEN), Cellulitis (GEN), Fluid Restriction (GEN) Patient Disposition: TRANSFER SNF Prescriptions: New Eliquis 5 mg Tablet 5 mg PO BID Qty: 60 0RF cephalexin 500 mg Capsule 500 mg PO Q8HR 4 Days Qty: 12 0RF Continued omeprazole 20 mg capsule,delayed release(DR/EC) 20 mg PO DAILY Qty: 90 1RF atorvastatin 80 mg tablet See Rx Instructions .ROUTE .COMPLEX Qty: 90 1RF Dose Instruction: TAKE 1 TABLET DAILY Rx Instructions: TAKE 1 TABLET DAILY sodium chloride 1,000 mg Tablet,Soluble 1,000 mg PO QID Qty: 120 0RF tamsulosin 0.4 mg capsule 0.4 mg PO BID Qty: 180 1RF enalapril maleate 20 mg tablet 30 mg PO DAILY Qty: 135 1RF hydrochlorothiazide 25 mg tablet 25 mg PO QAM PRN (Reason: swelling) Qty: 90 1RF finasteride 5 mg tablet 5 mg PO DAILY Qty: 90 1RF Did you review [place] [employer] for ALL controlled substances?: No Discussed opioids are addictive and Narcan is available by prescription or from pharmacy.: No Condition: Stable
[2024-02-15] MEDS: KEFLEX PO SCH (09:39)
[2024-02-15 09:41] VITALS: PULSE 86; RESP 16
--- NOTE | 2024-02-15 12:21 | ECHO2D ---
Date of Exam: 02/14/2024 Ordering Physician: KAMALA/ DR. YADIRA MILLIGAN Room #: 114 Reason for Echo: [place] A-FIB, R CHF, COPD, HTN, LVH, DYSLIPIDEMIA, CAROTID STENOSIS M-Mode Normal Adult Results LV Dimensions Normal Adult Results AoV Opening excursions >1.6 >1.2 LVEDD-base- 3.5-5.8 4.8 Ao root dimensions 2.0-3.7 3.2 LVESD-base- 3.1-4.6 L. Atrium dimensions 1.9-3.8 4.7 Post. Wall thickness 0.8-1.1 1.3 IV septum (thickness) 0.7-1.2 1.4 Post. Wall excursion 0.72-1.3 0.9 Septal motion 0.1 Systolic motion R. 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 LEFT VENTRICLE HYPERTROPHY WITH ENLARGED LEFT ATRIAL CAVITY 2. AKINETIC SEPTAL WALL--EJECTION FRACTION 41% 3. MILD CALCIFIC AORTIC STENOSIS 4. NORMAL LEFT VENTRICLE SIZE MTDD
== END 2024-02-15 12:30 | DRG 603 ==
LOC: ED 16:02 → MEDSURG B 16:02
PROVIDERS: ADMIT Hospitalist; ATTEND Nurse Practitioner Family
DX: E87.1 Hypo-osmolality and hyponatremia; N18.9 Chronic kidney disease, unspecified; I13.0 Hypertensive heart and chronic kidney disease with heart failure and stage 1 through stage 4 chronic kidney disease, or unspecified chronic kidney disease; I45.10 Unspecified right bundle-branch block; R60.0 Localized edema; I48.91 Unspecified atrial fibrillation; I50.811 Acute right heart failure; Z79.01 Long term (current) use of anticoagulants; K21.9 Gastro-esophageal reflux disease without esophagitis; J44.9 Chronic obstructive pulmonary disease, unspecified; D63.1 Anemia in chronic kidney disease; L03.116 Cellulitis of left lower limb; Z87.891 Personal history of nicotine dependence; N40.0 Benign prostatic hyperplasia without lower urinary tract symptoms; E78.5 Hyperlipidemia, unspecified; L03.115 Cellulitis of right lower limb